=== PATIENT | male | born 1970 | race Caucasian/White ===

== ENCOUNTER 2023-08-05 09:10 | Outpatient (OUT) | payer OTHER, SELFPAY ==
[2023-08-05 09:54] LABS: Basophils Percent Auto 0.5 % (0.2-2.0); Eosinophils Absolute Auto 0.1 10^3/uL (0.0-0.7); Eosinophils Percent Auto 1.6 % (0.9-7.0); Hematocrit 50.4 % (42.0-54.0); Hemoglobin 16.7 g/dL (14.0-18.0); Immature Granulocytes Abs Auto 0.03 10^3/uL (0.00-0.03); Immature Granulocytes Pct Auto 0.5 % (0.0-0.5); Lymphocytes Absolute Auto 1.2 10^3/uL (1.2-3.8); Lymphocytes Percent Auto 18.4 % (20.5-60.0); Mean Corpuscular HGB Conc 33.1 g/dL (29.9-35.2); Mean Corpuscular Hemoglobin 30.5 pg (25.9-34.0); Mean Corpuscular Volume 92.1 fL (80.0-94.0); Mean Platelet Volume 9.9 fL (9.5-13.5); Monocytes Absolute Auto 0.5 10^3/uL (0.3-0.8); Monocytes Percent Auto 7.7 % (1.7-12.0); Neutrophils Absolute Auto 4.5 10^3/uL (1.4-6.5); Neutrophils Percent Auto 71.3 % (43.0-75.0); Platelet Count 282 10^3/uL (150-450); Red Blood Count 5.47 10^6/uL (4.70-6.10); Red Cell Distribution Width 12.8 % (11.0-15.0); White Blood Count 6.3 10^3/uL (4.0-11.0)
[2023-08-05 10:09] LABS: Estimated Average Glucose 108 mg/dL; Glycohemoglobin A1C 5.4 % (4.5-6.2)
[2023-08-05 10:19] LABS: Alanine Aminotransferase 38 U/L (16-63); Albumin Level 3.6 g/dL (3.4-5.0); Alkaline Phosphatase 81 U/L (46-116); Anion Gap 8.4; Aspartate Amino Transferase 28 U/L (15-37); BUN Creatinine Ratio 11.3; Bilirubin Total 0.7 mg/dL (0.2-1.0); Calcium 8.8 mg/dL (8.5-10.1); Carbon Dioxide 31.9 mmol/L (21.0-32.0); Chloride 102 mmol/L (98-107); Chol HDL Ratio 2.7; Cholesterol 192 mg/dL (<=200); Estimated GFR (African America >60 (>=60); Estimated GFR (Non-African Ame >60 (>=60); Free T3 3.25 pg/mL (2.18-3.98); Globulin 3.6 g/dL; Glucose 102 mg/dL (74-106); HDL Cholesterol 72 mg/dL (40-60); Potassium 4.3 mmol/L (3.5-5.1); Sodium 138 mmol/L (136-145); Total Protein 7.2 g/dL (6.4-8.2); Triglycerides 43 mg/dL (<=150); VLDL CHOLESTEROL 8.6 mg/dL
[2023-08-05 10:57] LABS: Prostate Specific Antigen Scrn 3.96 ng/mL (<=4.00)
== END 2023-08-05 09:11 | disposition home or self-care (01) ==
LOC: LAB 09:14
PROVIDERS: PCP Family Medicine; Visit Provider Family Medicine
DX: Z00.00 Encounter for general adult medical examination without abnormal findings (principal); E78.5 Hyperlipidemia, unspecified; R73.09 Other abnormal glucose; Z12.5 Encounter for screening for malignant neoplasm of prostate
CPT/HCPCS: 36415; 80053; 80061; 83036; 84436; 84443; 84481; 85025; G0103

== ENCOUNTER 2024-02-17 11:03 | Outpatient (OUT) | payer OTHER, SELFPAY ==
--- OUTSIDE RECORDS SUMMARY | 2024-02-17 11:08 | XMS_ITS | CCD ---
Author Organization [facility] Care Team Providers Care Press Feeder [employer]roomcorn Name Role Phone ELLIE, DR MELENDEZ Admitting Unavailable HOY, DR MELENDEZ Attending Unavailable HOY, DR MELENDEZ Primary Care Unavailable HOY, DR MELENDEZ Admitting Unavailable HOY, DR MELENDEZ Attending Unavailable HOY, DR MELENDEZ Primary Care Unavailable HOY, DR MELENDEZ Admitting Unavailable HOY, DR MELENDEZ Attending Unavailable HOY, DR MELENDEZ Primary Care Unavailable HOY, DR MELENDEZ Consulting Unavailable HOY, DR MELENDEZ Admitting Unavailable HOY, DR MELENDEZ Attending Unavailable HOY, DR MELENDEZ Primary Care Unavailable HOY, DR MELENDEZ Admitting Unavailable HOY, DR MELENDEZ Attending Unavailable HOY, DR MELENDEZ Primary Care Unavailable HOY, DR MELENDEZ Consulting Unavailable WEST, DR OMAR Garcia Consulting Unavailable HOY, DR MELENDEZ Admitting Unavailable HOY, DR MELENDEZ Attending Unavailable HOY, DR MELENDEZ Primary Care Unavailable HOY, DR MELENDEZ Consulting Unavailable HOY, DR MELENDEZ Admitting Unavailable HOY, DR MELENDEZ Attending Unavailable HOY, DR MELENDEZ Primary Care Unavailable HOY, DR MELENDEZ Consulting Unavailable WEST, DR OMAR Garcia Consulting Unavailable Problems Active Problems Problem Classification Problem Date Documented Da te Episodic/Chronic Disorders of lipid metabolism (1 source) Hyperlipidemia, unspecified; Translations: [HYPERLIPIDEMIA UNSPECIFIED] Onset: 10-20-2021 Chronic Other endocrine disorders (1 source) Testicular hypofunction; Translations: [TESTICULAR HYPOFUNCTION] Onset: 10-20-2021 Chronic Other non-traumatic joint disorders (1 source) Pain in unspecified shoulder; Translations: [PAIN IN UNSPECIFIED SHOULDER] Onset: 06-14-2022 Episodic Residual codes; unclassified (4 sources) Obstructive sleep apnea (adult) (pediatric); Translations: [OBSTRUCTIVE SLEEP APNEA] Onset: 03-23-2022 Chronic Spondylosis; intervertebral disc disorders; other back problems (5 sources) Other cervical disc degeneration, unspecified cervical region; Translations: [OTH CERV DISC DEGENERATION UNS CERV] Onset: 06-03-2022 Chronic Spondylosis; intervertebral disc disorders; other back problems (4 sources) Cervicalgia; Translations: [CERVICALGIA] Onset: 06-05-2022 Episodic Past or Other Problems Problem Classification Problem Date Documented Da te Episodic/Chronic Other aftercare (1 source) Other group home (current) drug therapy; Translations: [OTH [facility] CURRENT DRUG THERAPY] Onset: 10-20-2021 Episodic Other screening for suspected conditions (not mental disorders or infectious disease) (1 source) Encounter for screening for malignant neoplasm of prostate; Translations: [ENC SCREEN MALIG NEOPLASM PROSTATE] Onset: 10-20-2021 Episodic Results Test Name Value Interpretation Reference Range Facility MRI CSPINE WO CONon 06-03-20 MRI CSPINE WO CON EXAMINATION: MRI CSPINE WO CON HISTORY: Degeneration of cervical intervertebral disc COMPARISON: No relevant comparison available. TECHNIQUE: A variety of imaging planes and parameters were utilized for visualization of suspected pathology. FINDINGS: CRANIOCERVICAL AREA: Normal foramen magnum with no Chiari malformation. PARASPINAL AREA: Normal with no visible mass. BONES: Normal alignment with no acute fracture or spondylolisthesis. Mild diffuse degenerative spondylosis. CORD: Normal caliber, contour, and signal intensity. CERVICAL DISC LEVELS: C2-C3: Early degenerative disc disease is present without focal protrusion or neural impingement. C3-C4: Early degenerative disc disease is present without focal protrusion or neural impingement. C4-C5: Early degenerative disc disease is present without focal protrusion or neural impingement. C5-C6: Mild disc space narrowing and disc desiccation. Mild posterior disc/osteophyte complex. No central or foraminal stenosis C6-C7: Mild disc space narrowing and disc desiccation. Mild to moderate diffuse disc/osteophyte complex. Minimal narrowing of the central canal to 9.3 mm in AP dimension. Mild right foraminal stenosis. No left foraminal stenosis C7-T1:. No significant disc/facet abnormality, spinal stenosis, or foraminal stenosis. IMPRESSION: Discogenic changes most significant at C6-C7 where there is minimal central canal and mild right foraminal stenosis Electronically authenticated by: OMAR OLIVER Date: 2022-06-03 16:15 Normal [facility] XR FOREIGN BODY EYEon 12-30- 2022 XR FOREIGN BODY EYE EXAMINATION: XR FOREIGN BODY EYE HISTORY: Foreign body in eye COMPARISON: No relevant comparison available. FINDINGS: ORBITS: Negative for a metallic foreign body. OTHER: Negative. IMPRESSION: No metallic foreign body in the orbits Electronically authenticated by: OMAR OLIVER Date: 2022-06-03 09:47 Normal [facility] XR CSPINE MIN 4 VIEWSon 04-05 XR CSPINE MIN 4 VIEWS EXAMINATION: XR CSPINE MIN 4 VIEWS HISTORY: Degeneration of cervical intervertebral disc COMPARISON: No relevant comparison available. FINDINGS: BONES: Normal alignment with no acute fracture or spondylolisthesis. Mild to moderate spondylosis. Mild facet osteoarthropathy DISC SPACES: Mild disc space narrowing PARASPINOUS: Negative. No paraspinous abnormality is seen. OTHER: Negative. IMPRESSION: Mild to moderate degenerative changes most significant at C4-C7 Electronically authenticated by: OMAR OLIVER Date: 2022-04-21 15:51 Normal [facility] OCC BLD IMMUNO SCREENon 10-03 OCCULT BLOOD Negative Normal NEGATIVE [facility] Comment on above: Performed By: #### O BSCRN ####[facility] [id number] [address]Dr. Tae Loving TESTOSTERONE, TOTALon 2021 Testosterone [Mass/Vol] 1025 ng/dL Critically high 264-916 [facility] Comment on above: Result Comment: Adul t male reference interval is based on a population of healthy nonobese males (BMI <30) between 19 and 39 years old. Zhou, et.al. JCEM 2017,102;1590-6790. PMID: [id number]. Performed By: #### T ESTTOT #### [facility] [address] [address] [address] Tae Loving CBC AUTO DIFFon 10-16-2021 BASO # 0.1 103/ul Normal 0.0-0.1 [facility] Comment on above: Performed By: #### C BC #### [facility] [address] [address] [address] Tae Loving Basophils/100 WBC (Bld) 0.6 % Normal 0.2-2.0 [facility] Comment on above: Performed By: #### C BC #### [facility] [address] [place] [address] Dr. Tae Loving EO # 0.1 103/ul Normal 0.0-0.7 [facility] Comment on above: Performed By: #### C BC #### [facility] [address] [place] [address] Dr. Tae Loving Eosinophils/100 WBC (Bld) 1.7 % Normal 0.9-7.0 [facility] Comment on above: Performed By: #### C BC #### [facility] [address] [place] [address] Dr. Tae Loving Erythrocyte distribution width (RBC) [Ratio] 13.2 % Normal 11.0-15.0 [facility] Comment on above: Performed By: #### C BC #### [facility] [address] [place] [address] Dr. Tae Loving Hematocrit (Bld) [Volume fraction] 52.4 % Normal 42.0-54.0 [facility] Comment on above: Performed By: #### C BC #### [facility] [address] [place] [address] Dr. Tae Loving Hemoglobin (Bld) [Mass/Vol] 17.6 g/dL Normal 14.0-18.0 [facility] Comment on above: Performed By: #### C BC #### [facility] [address] [place] [address] Dr. Tae Loving IG # 0.05 10e3/ul Critically high 0.00-0.03 [facility] Comment on above: Performed By: #### C BC #### [facility] [address] [place] [address] Dr. Tae Loving IG % 0.6 % Critically high 0.0-0.5 [facility] Comment on above: Performed By: #### C BC #### [facility] [address] [place] [address] Dr. Tae Loving LYMPH # 1.4 103/ul Normal 1.2-3.8 [facility] Comment on above: Performed By: #### C BC #### [facility] [address] [place] [address] Dr. Tae Loving Lymphocytes/100 WBC (Bld) 17.5 % Critically low 20.5-60.0 [facility] Comment on above: Performed By: #### C BC #### [facility] [address] [place] [address] Dr. Tae Loving MANUAL DIFF REQ NO Normal [facility] Comment on above: Performed By: #### C BC #### [facility] [address] [place] [address] Dr. Tae Loving MCH (RBC) [Entitic mass] 30.7 pg Normal 25.9-34.0 [facility] Comment on above: Performed By: #### C BC #### [facility] [address] [place] [address] Dr. Tae Loving MCHC (RBC) [Mass/Vol] 33.6 g/dL Normal 29.9-35.2 [facility] Comment on above: Performed By: #### C BC #### [facility] [address] [place] [address] Dr. Tae Loving MCV (RBC) [Entitic vol] 91.4 fL Normal 80.0-94.0 [facility] Comment on above: Performed By: #### C BC #### [facility] [address] [place] [address] Dr. Tae Loving MONO # 0.7 103/ul Normal 0.3-0.8 [facility] Comment on above: Performed By: #### C BC #### [facility] [address] [place] [address] Dr. Tae Loving Monocytes/100 WBC (Bld) 8.4 % Normal 1.7-12.0 [facility] Comment on above: Performed By: #### C BC #### [facility] [address] [place] [address] Dr. Tae Loving NEUT # 5.5 103/ul Normal 1.4-6.5 [facility] Comment on above: Performed By: #### C BC #### [facility] [address] [address] [address] Tae Loving Neutrophils/100 WBC (Bld) 71.2 % Normal 43.0-75.0 [facility] Comment on above: Performed By: #### C BC #### [facility] [address] [address] [address] Tae Loving Platelet mean volume (Bld) [Entitic vol] 9.2 fL Critically low 9.5-13.5 [facility] Comment on above: Performed By: #### C BC #### [facility] [address] [address] [address] Tae Loving PLT 273 103/ul Normal 150-450 [facility] Comment on above: Performed By: #### C BC #### [facility] [address] [place] [address] Dr. Tae Loving RBC 5.73 106/ul Normal 4.70-6.10 [facility] Comment on above: Performed By: #### C BC #### [facility] [address] [address] [address] Tae Loving WBC 7.7 103/ul Normal 4.0-11.0 [facility] Comment on above: Performed By: #### C BC #### [facility] [address] [address] [address] Tae Loving FREE T3on 10-16-2021 FREE T3 2.90 pg/mlL Normal 2.18-3.98 [facility] Comment on above: Performed By: #### C MP, T4, LIPID, TSH, FT3 #### [facility] [address] [address] [address] Tae Loving GLYCOHEMOGLOBIN A1Con 2021 ADA RECOMMENDATION SEE BELOW Normal [facility] Comment on above: Result Comment: ADA RECOMMENDED LIMIT 4.0 - 6.0 ADA THERAPEUTIC TARGET < 7.0 ACTION SUGGESTED > 7.0 Performed By: #### A 1C ####[facility] [id number] [address]Dr. Tae Loving Glucose [Mass/Vol] 108 mg/dL Normal [facility] Comment on above: Performed By: #### A 1C ####[facility] [id number] [place], [place] [address]QxDr. Tae Loving HbA1c (Bld) [Mass fraction] 5.4 % Normal 4.5-6.2 [facility] Comment on above: Performed By: #### A 1C ####[facility] [id number] [address]Dr. Tae Loving LIPID PROFILEon 10-16-2021 CHOL-HDL RATIO NORM SEE BELOW Normal [facility] Comment on above: Result Comment: 3.3 - 4.4 LOW RISK 4.4 - 7.1 AVERAGE RISK 7.1 - 11.0 MODERATE RISK >11.0 HIGH RISK Performed By: #### C MP, T4, LIPID, TSH, FT3 #### [facility] [address] [address] [address] Tae Loving Cholesterol [Mass/Vol] 177 mg/dL Normal <=200 [facility] Comment on above: Performed By: #### C MP, T4, LIPID, TSH, FT3 #### [facility] [address] [address] [address] Tae Loving Cholesterol in HDL [Mass/Vol] 54 mg/dL Normal 40-60 [facility] Comment on above: Performed By: #### C MP, T4, LIPID, TSH, FT3 #### [facility] [address] [address] [address] Tae Loving Cholesterol in LDL [Mass/Vol] 109.8 mg/dL Normal [facility] Comment on above: Performed By: #### C MP, T4, LIPID, TSH, FT3 #### [facility] [address] [address] [address] Tae Loving Cholesterol.total/Ch olesterol in HDL [Mass ratio] 3.3 {ratio} Normal [facility] Comment on above: Performed By: #### C MP, T4, LIPID, TSH, FT3 #### [facility] [address] [address] [address] Tae Loving HDL NORMAL > or = 60 mg/dl - LO W CARDIOVASCULAR RISK <40 mg/dl - HIGH CARDIOVASCULAR RISK Normal [facility] Comment on above: Performed By: #### C MP, T4, LIPID, TSH, FT3 #### [facility] [address] [address] [address] Tae Loving LDL CALC NORMAL SEE BELOW Normal [facility] Comment on above: Result Comment: <100 mg/dl OPTIMAL 100 - 129 mg/dl NEAR OR ABOVE OPTIMAL 130 - 159 mg/dl BORDERLINE HIGH 160 - 189 mg/dl HIGH >190 mg/dl VERY HIGH Performed By: #### C MP, T4, LIPID, TSH, FT3 #### [facility] [address] [address] [address] Tae Loving Triglyceride [Mass/Vol] 66 mg/dL Normal <=150 [facility] Comment on above: Performed By: #### C MP, T4, LIPID, TSH, FT3 #### [facility] [address] [place] [address] Dr. Tae Loving VLDL CALC 13.2 mg/dL Normal [facility] Comment on above: Performed By: #### C MP, T4, LIPID, TSH, FT3 #### [facility] [address] [place] [address] Dr. Tae Loving PROF 14(COMP METB)on 022 Albumin [Mass/Vol] 3.7 g/dL Normal 3.4-5.[address] [facility] Comment on above: Performed By: #### C MP, T4, LIPID, TSH, FT3 #### [facility] [address] [place] [address] Dr. Tae Loving Albumin/Globulin [Mass ratio] 1.1 {ratio} Normal [facility] Comment on above: Performed By: #### C MP, T4, LIPID, TSH, FT3 #### [facility] [address] [place] [address] Dr. Tae Loving ALP [Catalytic activity/Vol] 78 U/L Normal 46-116 [facility] Comment on above: Performed By: #### C MP, T4, LIPID, TSH, FT3 #### [facility] [address] [place] [address] Dr. Tae Loving ALT [Catalytic activity/Vol] 35 U/L Normal 16-63 [facility] Comment on above: Performed By: #### C MP, T4, LIPID, TSH, FT3 #### [facility] [address] [address] [address] Tae Loving Anion gap [Moles/Vol] 9.0 mmol/L Normal [facility] Comment on above: Performed By: #### C MP, T4, LIPID, TSH, FT3 #### [facility] [address] [place] [address] Dr. Tae Loving AST [Catalytic activity/Vol] 32 U/L Normal 15-37 [facility] Comment on above: Performed By: #### C MP, T4, LIPID, TSH, FT3 #### [facility] [address] [place] [address] Dr. Tae Loving Bilirubin [Mass/Vol] 0.8 mg/dL Normal 0.2-1.0 [facility] Comment on above: Performed By: #### C MP, T4, LIPID, TSH, FT3 #### [facility] [address] [place] [address] Dr. Tae Loving Calcium [Mass/Vol] 8.6 mg/dL Normal 8.5-10.[address] [facility] Comment on above: Performed By: #### C MP, T4, LIPID, TSH, FT3 #### [facility] [address] [place] [address] Dr. Tae Loving Chloride [Moles/Vol] 101 mmol/L Normal 98-107 [facility] Comment on above: Performed By: #### C MP, T4, LIPID, TSH, FT3 #### [facility] [address] [place] [address] Dr. Tae Loving CO2 [Moles/Vol] 31.1 mmol/L Normal 21.0-32.0 [facility] Comment on above: Performed By: #### C MP, T4, LIPID, TSH, FT3 #### [facility] [address] [place] [address] Dr. Tae Loving Creatinine [Mass/Vol] 1.08 mg/dL Normal 0.70-1.30 [facility] Comment on above: Performed By: #### C MP, T4, LIPID, TSH, FT3 #### [facility] [address] [place] [address] Dr. Tae Loving EGFR-AF ROMANIAN >60 Normal >=60 [facility] Comment on above: Performed By: #### C MP, T4, LIPID, TSH, FT3 #### [facility] [address] [place] [address] Dr. Tae Loving EGFR-NON AF ROMANIAN >60 Normal >=60 [facility] Comment on above: Performed By: #### C MP, T4, LIPID, TSH, FT3 #### [facility] [address] [place] [address] Dr. Tae Loving Globulin (S) [Mass/Vol] 3.4 g/dL Normal [facility] Comment on above: Performed By: #### C MP, T4, LIPID, TSH, FT3 #### [facility] [address] [place] [address] Dr. Tae Loving Glucose [Mass/Vol] 88 mg/dL Normal 74-[address] [facility] Comment on above: Performed By: #### C MP, T4, LIPID, TSH, FT3 #### [facility] [address] [place] [address] Dr. Tae Loving Potassium [Moles/Vol] 4.1 mmol/L Normal 3.5-5.1 [facility] Comment on above: Performed By: #### C MP, T4, LIPID, TSH, FT3 #### [facility] [address] [place] [address] Dr. Tae Loving Protein [Mass/Vol] 7.1 g/dL Normal 6.4-8.[address] [facility] Comment on above: Performed By: #### C MP, T4, LIPID, TSH, FT3 #### [facility] [address] [place] [address] Dr. Tae Loving Sodium [Moles/Vol] 137 mmol/L Normal 136-[address] [facility] Comment on above: Performed By: #### C MP, T4, LIPID, TSH, FT3 #### [facility] [address] [place] [address] Dr. Tae Loving Urea nitrogen [Mass/Vol] 15.0 mg/dL Normal 7.0-18.0 [facility] Comment on above: Performed By: #### C MP, T4, LIPID, TSH, FT3 #### [facility] [address] [place] [address] Dr. Tae Loving Urea nitrogen/Creatinine [Mass ratio] 13.9 mg/mg Normal [facility] Comment on above: Performed By: #### C MP, T4, LIPID, TSH, FT3 #### [facility] [address] [place] [address] Dr. Tae Loving T4on 10-16-2021 T4 [Mass/Vol] 7.00 ug/dL Normal 4.50-12.10 [facility] Comment on above: Performed By: #### C MP, T4, LIPID, TSH, FT3 #### [facility] [address] [place] [address] Dr. Tae Loving TSHon 10-16-2021 TSH 2.444 uIU/mL Normal 0.358-3.740 [facility] Comment on above: Performed By: #### C MP, T4, LIPID, TSH, FT3 #### [facility] [address] [place] [address] Dr. Tae Loving TSH RANGE SEE BELOW Normal [facility] Comment on above: Result Comment: <0.3 4 UIU/ml HYPERTHYROID 0.34-5.60 UIU/ml EUTHYROID >5.60 UIU/ml HYPOTHYROID Performed By: #### C MP, T4, LIPID, TSH, FT3 #### [facility] [address] [place] [address] Dr. Tae Loving General Surgery Office/Clini c Noteon 02-27-2021 General Surgery Office/Clinic Note Chief Complaint post operative follow up HPI Staff 10 day post in-office excisional biopsy right upper back; pathology- hemangioma. Denies bleeding or drainage. Sutures intact. History of Present Illness 10 days s/p excision inflamed, bleeding lesion right upper back; consistent with hemangioma on pathology; doing well, mild irritation of stitches; no pain or drainage, no bleeding. Review of Systems ROS - Provider Constitutional: no fever, no sweats, no weight loss. Eyes: no glasses, no blurred vision, no visual loss. ENMT: no dentures, no hoarseness, no swallowing difficulties, no hearing loss, no ear infection(s), no nose bleeds. Cardiovascular: normal blood pressure, no chest pain, regular heartbeat, no heart murmur. Respiratory: no shortness of breath, no cough, no asthma, no wheezing. Gastrointestinal: no nausea, no vomiting, no diarrhea, no constipation, no blood in stool, no change in bowel habits, no abdominal pain, no hepatitis. Genitourinary: no kidney stones, no urine infection, no dysuria. Musculoskeletal: no pain, no weakness. Skin: no changing moles, no rash, no skin lumps. Neurologic: no seizures, no epilepsy, no headache. Psychiatric: no emotional or psychiatric problem. Heme/Lymph: no bleeding problems, no anemia, no blood clots, no transfusions. Allergy/Immunologic: no swollen lymph nodes/glands, no IV drug abuse. Other: Additional ROS info: Except as noted in the above Review of Systems and in the History of Present Illness, all other systems have been reviewed and are negative or noncontributory. Physical Exam Vitals & Measurements T: 36.8 ?C (Temporal Artery) skin: incision healing well, no erythema or drainage, no ecchymoses. Assessment/Plan 1. Hemangioma of skin (D18.01: Hemangioma of skin and subcutaneous tissue) sutures removed; call with problems/questions. Follow-up No qualifying data available Problem List/Past Medical History Ongoing Anxiety BMI 39.0-39.9,adult Frequent loose stools Hemangioma of skin IBS (irritable bowel syndrome) Insomnia Lump on face Neoplasm of uncertain behavior of skin of back Skin mole Sleep apnea Testicular hypofunction Historical Hx of colonic polyps Procedure/Surgical History Excision of hemangioma (02/16/2021), Colonoscopy and biopsy of colon (04/03/2020), Bone of toe, Left inguinal hernia. Medications Acidophilus Probiotic Blend, 1 cap(s), Oral, Daily Diclofenac 75mg Tab-DR, 75 mg, Oral, BID Multi Vitamins oral tablet, 1 tab(s), Oral, Daily sildenafil 100 mg Tab, 100 mg= 1 tab(s), Oral, Daily, PRN testosterone cypionate 200 mg/mL IM Laura, 100 mg= 0.5 mL, IntraMuscular, qWeek Allergies No Known Allergies Social History Alcohol - Denies Alcohol Use, 03/04/2020 Substance Abuse - Denies Substance Abuse, 03/04/2020 Tobacco - Denies Tobacco Use, 03/04/2020 Never (less than 100 in lifetime) Tobacco Use:., 02/26/2021 Family History Cardiac arrhythmia: Mother. Immunizations Vaccine Date Status Comments influenza virus vaccine, inactivated - Not Given Patient Refuses Normal [facility] [place] [facility] Comment on above: Result Comment: Elec tronically Signed By: MARIO SILVA, Rao Paez\Date and Time Signed: 02/27/21 08:59 EDT Pathology Noteon 02-19-2021 Pathology Note [id number]# 1.00CD:127 Normal [facility] [place] [facility] Ambulatory Clinical Summaryo n 04-14-2020 Ambulatory Clinical Summary {[id number] -5c-30}CD:[id number] Normal [facility] General Surgery Office/Clini c Noteon 04-14-2020 General Surgery Office/Clinic Note Chief Complaint colonoscopy results HPI Staff 49 year old male on follow from colonoscopy with biopsies. Denies post procedural problems. No change in bowels. History of Present Illness s/p colonoscopy for loose stools; normal, bile throughout colon; negative terminal ileum and sigmoid biopsies; likely related to IBS; doing well, denies pain or blood in stools. Review of Systems PHQ Score Initial Depression Screen Score: 0 ROS - Provider Constitutional: no fever, no sweats, no weight loss. Eyes: no glasses, no blurred vision, no visual loss. ENMT: no dentures, no hoarseness, no swallowing difficulties, no hearing loss, no ear infection(s), no nose bleeds. Cardiovascular: normal blood pressure, no chest pain, regular heartbeat, no heart murmur. Respiratory: no shortness of breath, no cough, no asthma, no wheezing. Gastrointestinal: no nausea, no vomiting, no diarrhea, no constipation, no blood in stool, no change in bowel habits, no abdominal pain, no hepatitis. Genitourinary: no kidney stones, no urine infection, no dysuria. Musculoskeletal: no pain, no weakness. Skin: no changing moles, no rash, no skin lumps. Neurologic: no seizures, no epilepsy, no headache. Psychiatric: no emotional or psychiatric problem. Heme/Lymph: no bleeding problems, no anemia, no blood clots, no transfusions. Allergy/Immunologic: no swollen lymph nodes/glands, no IV drug abuse. Other: Additional ROS info: Except as noted in the above Review of Systems and in the History of Present Illness, all other systems have been reviewed and are negative or noncontributory. Physical Exam Vitals & Measurements T: 37.9 ?C (Tympanic) HR: 80(Peripheral) RR: 16 BP: 146/78 HT: 180.3 cm HT: 180.3 cm WT: 122.8 kg WT: 122.79 kg BMI: 37.77 Assessment/Plan 1. IBS (irritable bowel syndrome) (K58.9: Irritable bowel syndrome without diarrhea) recommend trial of low FODMAP diet; high fiber diet with daily fiber supplement; if no improvement, may consider Questran. call with problems/questions. 2. Frequent loose stools (R19.7: Diarrhea, unspecified) see # 1 Follow-up No qualifying data available Patient Education Diet and Irritable Bowel Syndrome Problem List/Past Medical History Ongoing Anxiety Frequent loose stools IBS (irritable bowel syndrome) Insomnia Sleep apnea Testicular hypofunction Historical Hx of colonic polyps Procedure/Surgical History Colonoscopy and biopsy of colon (04/03/2020), Bone of toe, Left inguinal hernia. Medications Diclofenac 75mg Tab-DR, 75 mg, Oral, BID, Still taking, not as prescribed: taking as needed. unknown last dose sildenafil 100 mg Tab, 100 mg= 1 tab(s), Oral, Daily, PRN testosterone cypionate 200 mg/mL IM Laura, 100 mg= 0.5 mL, IntraMuscular, qWeek Allergies No Known Allergies Social History Alcohol - Denies Alcohol Use, 03/04/2020 Substance Abuse - Denies Substance Abuse, 03/04/2020 Tobacco - Denies Tobacco Use, 03/04/2020 Never (less than 100 in lifetime) Tobacco Use:., 04/14/2020 Family History Cardiac arrhythmia: Mother. Immunizations Vaccine Date Status Comments influenza virus vaccine, inactivated - Not Given Patient Refuses Normal [facility] Comment on above: Result Comment: Elec tronically Signed By: Rao COPE MD\Date and Time Signed: 04/14/20 16:42 EST IntraOperative Documentson 1 06-14-2019 IntraOperative Documents [id number]# 1.00CD:127 Normal [facility] Patient Educationon 04-14-20 Patient Education Diet and Irritable Bowel Syndrome No cure has been found for irritable bowel syndrome (IBS). Many options are available to treat the symptoms. Your caregiver will give you the best treatments available for your symptoms. He or she will also encourage you to manage stress and to make changes to your diet. You need to work with your caregiver and Director Of Compensation to find the best combination of medicine, diet, counseling, and support to control your symptoms. The following are some diet suggestions. FOODS THAT MAKE IBS WORSE ? Fatty foods, such as [place]ian fries. ? Milk products, such as cheese or ice cream. ? Chocolate. ? Alcohol. ? Caffeine (found in coffee and some sodas). ? Carbonated drinks, such as soda. If certain foods cause symptoms, you should eat less of them or stop eating them. FOOD JOURNAL ? Keep a journal of the foods that seem to cause distress. Write down: ? What you are eating during the day and when. ? What problems you are having after eating. ? When the symptoms occur in relation to your meals. ? What foods always make you feel badly. ? Take your notes with you to your caregiver to see if you should stop eating certain foods. FOODS THAT MAKE IBS BETTER Fiber reduces IBS symptoms, especially constipation, because it makes stools soft, bulky, and easier to pass. Fiber is found in bran, bread, cereal, beans, fruit, and vegetables. Examples of foods with fiber include: ? Apples. ? Peaches. ? Pears. ? Berries. ? Figs. ? Broccoli, raw. ? Cabbage. ? Carrots. ? Raw peas. ? Kidney beans. ? [place] beans. ? Whole-grain bread. ? Whole-grain cereal. Add foods with fiber to your diet a little at a time. This will let your body get used to them. Too much fiber at once might cause gas and swelling of your abdomen. This can trigger symptoms in a person with IBS. Caregivers usually recommend a diet with enough fiber to produce soft, painless bowel movements. High fiber diets may cause gas and bloating. However, these symptoms often go away within a few weeks, as your body adjusts. In many cases, dietary fiber may lessen IBS symptoms, particularly constipation. However, it may not help pain or diarrhea. High fiber diets keep the colon mildly enlarged (distended ) with the added fiber. This may help prevent spasms in the colon. Some forms of fiber also keep water in the stool, thereby preventing hard stools that are difficult to pass. Besides telling you to eat more foods with fiber, your caregiver may also tell you to get more fiber by taking a fiber pill or drinking water mixed with a special high fiber powder. An example of this is a natural fiber laxative containing psyllium seed. TIPS ? Large meals can cause cramping and diarrhea in people with IBS. If this happens to you, try eating 4 or 5 small meals a day, or try eating less at each of your usual 3 meals. It may also help if your meals are low in fat and high in carbohydrates. Examples of carbohydrates are pasta, rice, whole-grain breads and cereals, fruits, and vegetables. ? If dairy products cause your symptoms to flare up, you can try eating less of those foods. You might be able to handle yogurt better than other dairy products, because it contains bacteria that helps with digestion. Dairy products are an important source of calcium and other nutrients. If you need to avoid dairy products, be sure to talk with a Registered Dietitian about getting these nutrients through other food sources. ? Drink enough water and fluids to keep your urine clear or pale yellow. This is important, especially if you have diarrhea. FOR MORE INFORMATION International Foundation for Functional Gastrointestinal Disorders: www.iffgd.org National Digestive Diseases Information Clearinghouse: digestive.niddk.nih.g ov Document Released: 08/11/2004 Document Revised: 08/13/2012 Document Reviewed: 04/28/2008 ExitCare? Patient Information ?2013 [facility] Postoperative Documentson Postoperative Documents [id number] .00CD:127 Normal [facility] Coding Summary.on 04-10-2020 Coding Summary. CODING DATE: 04/10/2020 FINAL [facility] STATUS: Home (Routine DC) PAYOR: Commercial Insurance APC DESCRIPTION 5312 Level 2 Lower GI Procedures ADMIT DX: REASON FOR VISIT DX: R19.7 Diarrhea, unspecified FINAL DX: PRINCIPAL: R19.7 Diarrhea, unspecified SECONDARY: K58.9 Irritable bowel syndrome without diarrhea PYMT PROC APC STAT DESCRIPTION DOCTOR NAME DATE 74481 5312 T Colonoscopy, flexible; Rao COPE MD 04/03/2020 with biopsy, single or multiple 07296 Anesthesia for lower Liben JR DO, Shashi 04/03/2020 intestinal endoscopic procedures, endoscope introduced distal to duodenum; not otherwise specified NOTE: The code number assigned matches the documented diagnosis and / or procedure in the patient's chart. However, the narrative phrase printed from the coding software may appear abbreviated, or result in slightly different terminology. Revised Coded By: Teri Wylie Revised Date Saved: 04/10/2020 11:21 am [facility] Main OR Intraoperative Recor don 04-07-2020 Main OR Intraoperative Record IntraOp Document Type FT Summary Primary Physician: Rao COPE MD Finalized Date/Time: 04/07/20 10:56:53 Pt. Name: SEDRICK HENDRICKS/Sex: 1970 Male Med Rec #: [id number] Physician: Rao COPE MD Financial #: [id number] Pt. Type: O Room/Bed: / Admit/Disch: 04/03/20 07:24:03 - 04/03/20 23:59:59 Institution: Case Times FT Entry 1 Patient Times In Room 04/03/20 08:30:00 Out Room 04/03/20 08:50:00 Procedure Times Start 04/03/20 08:34:00 Stop 04/03/20 08:47:00 Anesthesia Times Start 04/03/20 08:30:00 Stop 04/03/20 08:50:00 Time at [place] 04/03/20 08:39:00 Last Modified By: Tony CHOI, Yvonne Nelson 04/03/20 08:50:49 General Comments: 04/07/2020 Chart opened to review and send charges Omar Castro CST Case Attendance FT Entry 1 Entry 2 Entry 3 Case Attendee Erwin HUYNH DO, Shashi COPE MD, Yvonne Jimenez RN Role Performed Anesthesiologist of Surgeon - Primary Check Out Cashier - Primary Record Time In 04/03/20 08:30:00 04/03/20 08:30:00 04/03/20 08:30:00 Time Out 04/03/20 08:49:00 04/03/20 08:49:00 04/03/20 08:49:00 Procedure COLONOSCOPY(.) COLONOSCOPY(.) COLONOSCOPY(.) Comments Last Modified By: Tony RN, Yvonne Jimenez RN, Yvonne Granados RN 04/03/20 08:49:13 04/03/20 08:49:13 04/03/20 08:49:13 Entry 4 Case Attendee Alondra Reilly CST Role Performed Scrub - Primary Time In 04/03/20 08:30:00 Time Out 04/03/20 08:49:00 Procedure COLONOSCOPY(.) Comments Last Modified By: Yvonne Jimenez RN 04/03/20 08:49:13 Perioperative Protocols FT Pre-Care Text: Implements protective measures prior to operative or invasive procedure, confirms identity before the operative or invasive procedure, verifies operative procedure, surgical site, and laterality Entry 1 Procedure(s) COLONOSCOPY(.) Patient Identity Birthday, ID Band Verified (select at Check, Patient least 2): Participation Consents / H and P Anesthesia Consent, Operative Site N/A Verified HandP, Surgery/Procedure Marking Verified Consent Surgical Site Yes Laterality Verified n/a Verified Procedure Verified Yes Correct Patient Yes Position Verified Availability Equipment, Medication Prep Dry n/a Verified (If Applicable) PreOp Antibiotic No Time Out Erwin HUYNH DO, MARIO Paiz MD, Tony Bah RN, Tommie Childress CST, Kimberly A Time Out Complete 04/03/20 08:33:00 Outcomes Met? Yes Last Modified By: Yvonne Jimenez RN 04/03/20 08:34:27 Post-Care Text: The patient is free from signs and symptoms of injury caused by extraneous objects Allergy Information FT Pre-Care Text: Verifies allergies Entry 1 Allergies Reviewed? Yes Allergies Reviewed Self/Patient With Outcomes Met? Yes Last Modified By: Yvonne Jimenez RN 04/03/20 07:15:25 Post-Care Text: The patient received appropriate medication(s) safely administered during the perioperative period Surgical Procedures FT Entry 1 Procedure Description Procedure COLONOSCOPY Modifiers . Surgeon Description COLONOSCOPY WITH TERMINAL ILEUM AND SIGMOID BIOPSIES Primary Procedure Yes Primary Surgeon Rao COPE MD 04/03/20 08:34:00 Stop 04/03/20 08:47:00 Anesthesia Type General Surgical Service General Wound Class 2 - Clean-Contaminated Last Modified By: Yvonne Jimenez RN 04/03/20 08:49:12 General Case Data FT Pre-Care Text: Classifies surgical wound, implements aseptic technique, initiates traffic control Entry 1 Case Information OR ENDO 2 FT Case Level Level 2 Wound Class 2 - Clean-Contaminated Specialty General ASA Class 2 Preop Diagnosis LOOSE STOOLS Postop Same As Preop No Postop Diagnosis NORMAL COLONOSCOPY Outcomes Met? Yes Last Modified By: Yvonne Jimenez RN 04/03/20 08:49:24 Post-Care Text: The patient is free from signs and symptoms of infection Skin Assessment (Pre Procedure) FT Pre-Care Text: Implements protective measures to prevent skin/ tissue injury due to thermal or mechanical sources Evaluates for signs and symptoms of physical injury to skin and tissue Entry 1 Skin Integrity Other/See Comments Skin Abnormality No Outcomes Met? Yes Last Modified By: Yvonne Jimenez RN 04/03/20 08:37:07 Post-Care Text: The patient is free from signs and symptoms of injury caused by extraneous objects Patient Positioning FT Pre-Care Text: Identifies physical alterations that require additional precautions for procedure-specific positioning, verifies presence of prosthetics or corrective devices, positions the patient, evaluates the patient for signs and symptoms of injury as a result of positioning Entry 1 Procedure COLONOSCOPY(.) Body Position Lateral, right side up Feet Uncrossed? Yes Left Arm Position Resting at Side Right Arm Position Resting at Side Left Leg Position Extended Right Leg Position Extended Positioning Device Pillow Under Head Large Press Points Checked Yes By Yvonne Jimenez RN, Erwin HUYNH DO, N (more content not included)... Normal [facility] Colonoscopy Procedure Report on 04-03-2020 Colonoscopy Procedure Report Date of Surgery: 04/03/2020 SURGEON: Rao Cope M.D. PREOPERATIVE DIAGNOSIS: Frequent loose stools POSTOPERATIVE DIAGNOSIS: Normal colonoscopy to terminal ileum OPERATION: Colonoscopy to terminal ileum with cold biopsy of the terminal ileum and sigmoid due to his history of loose stools ANESTHESIA: Monitored anesthesia care ANESTHESIOLOGIST: Ekaterina Hood Jr., D.O. ESTIMATED BLOOD LOSS: Less than 1 mL INDICATIONS AND CONSENT: The patient is a 49 year old male with frequent loose stools. The indications, risks, benefits, alternatives of proceeding with colonoscopy were explained extensively to the patient including risk of bleeding, colon perforation or anesthetic complications. All of his questions were answered. Informed consent was obtained. PROCEDURE: The patient was brought to the Operating Room and placed in the left lateral decubitus position. Monitored anesthesia care was provided. Rectal examination was performed which revealed no masses or blood. The scope was inserted at the anal canal under direct visualization it was advanced. It was advanced to the cecum where cecal markings were clearly identified. There was noted to be a good prep. The terminal ileum was intubated and noted to be normal. Random biopsy was obtained with cold biopsy forceps with good hemostasis. Upon withdrawal of the scope mucosal surfaces were carefully examined. There were no mass, lesions or polyps. No inflammatory changes or ulcerations. No significant diverticulosis. A random sigmoid biopsy was also obtained with the cold biopsy forceps with good hemostasis. The scope was retroflexed in the anal canal. There was noted to be some prominent rectal veins. No significant hemorrhoidal disease. The scope was then withdrawn. The patient tolerated the procedure well, was sent to Recovery Room in good condition. Johnny Martino Dictated: 04/03/2020 #[id number] Typed: 04/03/2020 #[id number] cc: Johnny Larkin M.D. [facility] Consenton 04-03-2020 Consent [id number]# 1.00CD:127 [facility] Consent for Treatmenton 03-07 Consent for Treatment [id number] .00CD:127 [facility] Discharge Instructionson Discharge Instructions [id number]# 1.00CD:127 Normal [facility] Inpatient Patient Summaryon 04-03-2020 Inpatient Patient Summary [address] [address] [facility] Clinical Discharge Instructions PERSON INFORMATION Name: SEDRICK HENDRICKS PHYSICIANS Admitting Physician: Rao COPE MD Attending Physician: Rao COPE MD PCP: Ellie SILVA, Al Discharge Diagnosis: Frequent loose stools Comment: PATIENT EDUCATION INFORMATION Instructions: Colonoscopy, Care After Surgery Salam (CUSTOM) Medication Leaflets: Follow up: With: Address: When: Rao MARIO [address] [place] [address], [address], [address] [address] Business (1) Within 7 to 10 days MEDICATION LIST Medications to Continue with No Changes Other Medications diclofenac (Diclofenac 75mg Tab-DR) 75 Milligram By Mouth 2 times a day. sildenafil (sildenafil 100 mg Tab) 1 Tablets By Mouth every day as needed erectile dysfunction. testosterone (testosterone cypionate 200 mg/mL IM Laura) 0.5 Milliliter Intramuscular every week. Comment: Normal [facility] IntraOperative Documentson IntraOperative Documents [id number]# 1.00CD:127 Normal [facility] IntraOperative Documents [id number]# 1.00CD:127 [facility] Main OR PACU I Recordon 03-07 Main OR PACU I Record PACU Phase I Document Type FT Summary Primary Physician: Rao COPE MD Finalized Date/Time: 04/03/20 09:24:17 Pt. Name: SEDRICK HENDRICKS Linda /Sex: 1970 Male Med Rec #: [id number] Physician: Rao COPE MD Financial #: [id number] Pt. Type: O Room/Bed: / Admit/Disch: 04/03/20 07:24:03 - Institution: Case Times PACU I FT Pre-Care Text: Identifies barriers to communication and implements measures to provide psychological support Develops individualized plan of care, and ensures continuity of care Maintains patient's dignity and privacy, and maintains patient confidentiality Identifies and reports philosophical, cultural, and spiritual beliefs and values Identifies individual values and wishes concerning care Implements aseptic technique, and administers prescribed antibiotic therapy and immunizing agents as ordered Evaluates postoperative tissue perfusion Implements thermoregulation measures, and monitors body temperature Evaluates postoperative respiratory status Evaluates postoperative cardiac status Evaluates postoperative neurological status Assesses pain control, collaborated in initiating patient-controlled analgesia and implements alternative methods of pain control Verifies allergies, administers prescribed medications and solutions, evaluates response to medications Entry 1 In PACU I 04/03/20 08:51:00 Discharge from PACU 04/03/20 09:21:00 I Outcomes Met? Yes Last Modified By: Shira Pinto RN 04/03/20 09:24:08 Post-Care Text: The patient demonstrates knowledge of the expected response to the operative or invasive procedure The patient's care is consistent with the individualized perioperative plan of care The patient's right to privacy is maintained The patient's value system, lifestyle, ethnicity, and culture are considered, respected, and incorporated into the perioperative plan of care The patient participates in decisions affecting his or her perioperative plan of care The patient is free from signs and symptoms of infection The patient has wound/tissue perfusion consistent with or improved from baseline levels established preoperatively The patient is at or returning to normothermia at the conclusion of the immediate postoperative period The patient's respiratory function is consistent with or improved from baseline levels established preoperatively The patient's cardiovascular status is consistent with or improved from baseline levels established preoperatively The patient's cardiovascular status is consistent with or improved from baseline levels established preoperatively The patient demonstrates and/or reports adequate pain control throughout the perioperative period The patient received appropriate medication(s), safely administered during the perioperative period Acuity Level PACU I FT Entry 1 Start Time 04/03/20 08:51:00 Stop Time 04/03/20 09:21:00 Acuity Level Acuity Level I Last Modified By: Shira Pinto RN 04/03/20 09:24:17 Finalized By: Shira Pinto RN Document Signatures Signed By: Shira Pinto RN 04/03/20 09:24 [facility] Main OR Preoperative Recordo n 04-03-2020 Main OR Preoperative Record Holding Area Document Type FT Summary Primary Physician: Rao COPE MD Finalized Date/Time: 04/03/20 07:44:27 Pt. Name: SABA HENDRICKSOBEY ChristyO.B./Sex: 1970 Male Med Rec #: [id number] Physician: Rao COPE MD Financial #: [id number] Pt. Type: O Room/Bed: / Admit/Disch: 04/03/20 07:24:03 - Institution: Case Times Holding FT Pre-Care Text: Verifies consent for planned procedure, identifies individual values and wishes concerning care, includes family members in perioperative teaching Secures patient's records' belongings, and valuables, maintains patient's dignity and privacy, and maintains patient confidentiality Entry 1 In Holding 04/03/20 07:40:00 Outcomes Met? Yes Last Modified By: James Cleary RN 04/03/20 07:42:09 Post-Care Text: The patient participates in decisions affecting his or her perioperative plan of care The patient's right to privacy is maintained Surgery Checklist FT Entry 1 Patient Birthday, ID Band Procedure History and Physical, Identification: Check, Patient Verification: Surgical Consent, With Participation Patient Personal Items: Glasses Personal Items glasses Comment: Limitations: none Complaints of Pain: No Pain Comment: denies Operative Site n/a Marking: Availability Equipment Verified: Does Patient Smoke No Patient states Yes Comment - Adult - Sade postop adult Supervision supervision available Case Cancelled in No Holding Area see comments below for reason Last Modified By: James Cleary RN 04/03/20 07:44:21 General Comments: pt finished prep before 0000. nothing to eat or drink after. MS,RN. Finalized By: James Cleary RN Document Signatures Signed By: James Cleary RN 04/03/20 07:44 Normal [facility] Outpatient Surgery Discharge Instructionon 04-03-2020 Outpatient Surgery Discharge Instruction [address] [address] Patient Discharge Instructions PERSON INFORMATION Name: ALEJANDRA SEDRICK Mckeon Date of : 1970 Current Date: 04/03/2020 09:00:12 PHYSICIANS Admitting Physician: Rao COPE MD Discharge Diagnosis: Frequent loose stools SEDRICK HENDRICKS has been given the following list of follow-up instructions, prescriptions, and patient education materials: PATIENT FOLLOW-UP INFORMATION Diet: Regular Discharge Activity: Resume normal activities in 24 hours, Arrange for a responsible adult supervision for 24 hours Discharge Restrictions: No driving for 24 hrs, Do not make important decisions for 24 hours, Do not drink alcoholic beverages for 24 hours Call Your Doctor For: Persistent or heavy bleeding, Temperature above 101.5 degrees, Severe pain at the operative site, Persistent vomiting IF UNABLE TO CONTACT YOUR PHYSICIAN AND YOU FEEL IT IS AN EMERGENCY, GO TO THE NEAREST EMERGENCY ROOM OR CALL 911 I, SEDRICK HENDRICKS, have received the attached patient education materials/instruction s and have verbalized understanding: May we do a follow up call? Yes No I was present when discharge instructions were given Patient Signature Date Clinican/Nurse Signature Date Follow up: With: Address: When: Rao COPE [address] [place] [address], [address], [address] [address] Business (1) Within 7 to 10 days Pharmacy Information: Thank you for choosing [facility] HERE ARE THE MEDICATION CHANGES THAT OCCURRED DURING YOUR HOSPITAL STAY Medications to Continue with No Changes Other Medications diclofenac (Diclofenac 75mg Tab-DR) 75 Milligram By Mouth 2 times a day. sildenafil (sildenafil 100 mg Tab) 1 Tablets By Mouth every day as needed erectile dysfunction. testosterone (testosterone cypionate 200 mg/mL IM Laura) 0.5 Milliliter Intramuscular every week. PATIENT EDUCATION INFORMATION Instructions: Colonoscopy Care After Surgery Please read the instructions outlined below and refer to this sheet in the next few weeks. These discharge instructions provide you with general information on caring for yourself after you leave the hospital. Your doctor may also give you specific instructions. While your treatment has been planned according to the most current medical practices available, unavoidable complications occasionally occur. If you have any problems or questions after discharge, please call your doctor. ACTIVITY You may resume your regular activity, but move at a slower pace for the next 24 hours. Take frequent rest periods for the next 24 hours. Walking will help get rid of the air and reduce the bloated feeling in your abdomen (belly). No driving for 24 hours (because of the anesthesia (medicine) used during the test). You may shower. Do not sign any important legal documents or operate any machinery for 24 hours (because of the anesthesia used during the test). NUTRITION Drink plenty of fluids. You may resume your normal diet as instructed by your doctor. Begin with a light meal and progress to your normal diet. Heavy or fried foods are harder to digest and may make you feel nauseated (sick to your stomach). Avoid alcoholic beverages for 24 hours or as instructed. MEDICATIONS You may resume your normal medications unless your doctor tells you otherwise. WHAT YOU CAN EXPECT TODAY Some feelings of bloating in the abdomen. Passage of more gas than usual. Spotting of blood in your stool or on the toilet paper. FOLLOW-UP Your doctor will discuss the results of your test with you. SEEK IMMEDIATE MEDICAL ATTENTION IF: There is more than a spotting of blood in your stool. There is abdominal distention (your abdomen is swollen). There is vomiting. You have a temperature over 101.5 F. There is abdominal pain or discomfort that is severe or gets worse throughout the day. Normal [facility] [place] [facility] Patient Education - Texton 1 Patient Education - Text Colonoscopy Care After Surgery Please read the instructions outlined below and refer to this sheet in the next few weeks. These discharge instructions provide you with general information on caring for yourself after you leave the hospital. Your doctor may also give you specific instructions. While your treatment has been planned according to the most current medical practices available, unavoidable complications occasionally occur. If you have any problems or questions after discharge, please call your doctor. ACTIVITY You may resume your regular activity, but move at a slower pace for the next 24 hours. Take frequent rest periods for the next 24 hours. Walking will help get rid of the air and reduce the bloated feeling in your abdomen (belly). No driving for 24 hours (because of the anesthesia (medicine) used during the test). You may shower. Do not sign any important legal documents or operate any machinery for 24 hours (because of the anesthesia used during the test). NUTRITION Drink plenty of fluids. You may resume your normal diet as instructed by your doctor. Begin with a light meal and progress to your normal diet. Heavy or fried foods are harder to digest and may make you feel nauseated (sick to your stomach). Avoid alcoholic beverages for 24 hours or as instructed. MEDICATIONS You may resume your normal medications unless your doctor tells you otherwise. WHAT YOU CAN EXPECT TODAY Some feelings of bloating in the abdomen. Passage of more gas than usual. Spotting of blood in your stool or on the toilet paper. FOLLOW-UP Your doctor will discuss the results of your test with you. SEEK IMMEDIATE MEDICAL ATTENTION IF: There is more than a spotting of blood in your stool. There is abdominal distention (your abdomen is swollen). There is vomiting. You have a temperature over 101.5 F. There is abdominal pain or discomfort that is severe or gets worse throughout the day. Normal [facility] [place] [facility] Progress Note-Physicianon Progress Note-Physician Patient: SEDRICK HENDRICKS Age: 49 years Sex: Male : 1970 Associated Diagnoses: None Author: Shashi Hood JR, DO Postoperative Information Post Operative Note: Post Anesthesia Care Unit. Anesthetic utilized: General, Monitored anesthesia care. Health Status Allergies: Allergic Reactions (Selected) No Known Allergies Current medications: (Selected) Inpatient Medications Ordered Sodium Chloride 0.9% IV Laura 1000 mL 1,000 mL: 1,000 mL, IV, 20 mL/hr, Routine, Start date 04/03/20 7:16:00 EDT, 50 hour(s), Total volume (mL): 1,000, 122.8 kg, 2.48, m2 Documented Medications Documented Diclofenac 75mg Tab-DR: 75 mg, Oral, BID, Refills(s) 0 sildenafil 100 mg Tab: 100 mg = 1 tab(s), Oral, Daily, PRN erectile dysfunction, Refills(s) 0 testosterone cypionate 200 mg/mL IM Laura: 100 mg = 0.5 mL, IntraMuscular, qWeek, Refills(s) 0 Problem list: All Problems Frequent loose stools / SNOMED CT 197652385 / Confirmed Sleep apnea / SNOMED CT 655838553 / Confirmed Testicular hypofunction / SNOMED CT 889955824 / Confirmed IBS (irritable bowel syndrome) / SNOMED CT 39247223 / Confirmed Insomnia / SNOMED CT 484064681 / Confirmed Anxiety / SNOMED CT 24368550 / Confirmed Physical Examination Intake and Output Denies significant n/v and is tolerating p.o. Vital Signs (last 24 hrs) Last Charted SBP 114 mmHg (APR 03 08:45) DBP 94 mmHg (APR 03 08:45) SpO2 98 % (APR 03 08:45) Respiratory: Adequate air exchange with mu-ism of preoperative function.. Cardiovascular: Cardiovascular function is stable and has returned to preoperative levels.. Neurologic: Pt has returned to preoperative baseline.. Review / Management Condition: Stable. Assessment Anesthetic outcome No anesthetic complications noted. Plan Transfer/ Discharge: Patient can be discharged from PACU when criteria met. Condition good. Normal [facility] [place] [facility] Comment on above: Result Comment: Elec tronically Signed By: Shashi Hood JR, DO\.br\Date and Time Signed: 04/03/20 08:57 EDT Progress Note-Physician Patient: SEDRICK HENDRICKS Age: 49 years Sex: Male : 1970 Associated Diagnoses: None Author: Shashi Hood JR, DO Postoperative Information Post Operative Note: Post Anesthesia Care Unit. Anesthetic utilized: General, Monitored anesthesia care. Health Status Allergies: Allergic Reactions (Selected) No Known Allergies Current medications: (Selected) Inpatient Medications Ordered Sodium Chloride 0.9% IV Laura 1000 mL 1,000 mL: 1,000 mL, IV, 20 mL/hr, Routine, Start date 04/03/20 7:16:00 EDT, 50 hour(s), Total volume (mL): 1,000, 122.8 kg, 2.48, m2 Documented Medications Documented Diclofenac 75mg Tab-DR: 75 mg, Oral, BID, Refills(s) 0 sildenafil 100 mg Tab: 100 mg = 1 tab(s), Oral, Daily, PRN erectile dysfunction, Refills(s) 0 testosterone cypionate 200 mg/mL IM Laura: 100 mg = 0.5 mL, IntraMuscular, qWeek, Refills(s) 0 Problem list: All Problems Frequent loose stools / SNOMED CT 653938515 / Confirmed Sleep apnea / SNOMED CT 610023819 / Confirmed Testicular hypofunction / SNOMED CT 962632221 / Confirmed IBS (irritable bowel syndrome) / SNOMED CT 74537033 / Confirmed Insomnia / SNOMED CT 971316789 / Confirmed Anxiety / SNOMED CT 38935268 / Confirmed Physical Examination Intake and Output Denies significant n/v and is tolerating p.o. Vital Signs (last 24 hrs) Last Charted SBP H 154mmHg (APR 03 07:47) DBP H 93mmHg (APR 03 07:47) SpO2 96 % (APR 03 07:47) Respiratory: Adequate air exchange with mu-ism of preoperative function.. Cardiovascular: Cardiovascular function is stable and has returned to preoperative levels.. Neurologic: Pt has returned to preoperative baseline.. Review / Management Condition: Stable. Assessment Anesthetic outcome No anesthetic complications noted. Plan Transfer/ Discharge: Patient can be discharged from PACU when criteria met. Condition good. Normal [facility] [place] [facility] Comment on above: Result Comment: Elec tronically Signed By: Shashi Hood JR, DO\Date and Time Signed: 04/03/20 08:51 EDT Coding Summary.on 03-31-2020 Coding Summary. CODING DATE: 03/31/2020 FINAL [facility] STATUS: Home (Routine DC) PAYOR: Commercial Insurance ADMIT DX: REASON FOR VISIT DX: Z01.812 Encounter for preprocedural laboratory examination FINAL DX: PRINCIPAL: Z01.812 Encounter for preprocedural laboratory examination SECONDARY: Z11.59 Encounter for screening for other viral diseases PYMT PROC APC STAT DESCRIPTION DOCTOR NAME DATE NOTE: The code number assigned matches the documented diagnosis and / or procedure in the patient's chart. However, the narrative phrase printed from the coding software may appear abbreviated, or result in slightly different terminology. Coded By: Cristina Aranda CphT Date Saved: 03/31/2020 09:24 am Normal [facility] [place] [facility] Priority Order-Kevan 2019 Priority Order-STAT Comment Invalid Interpretation Code [facility] [place] [facility] Comment on above: Result Comment: Rece ived Performed at: [facility] [address] [facility] [place] [id number] MD Lyndon Rossi Performed By: #### S ARS-CoV-2, KATLHEEN, [id number] ####[facility] [place] [facility] [address] [place] [address] SARS-CoV-2, NAAon 03-28-2020 SARS-CoV-2 (COVID-19) RNA KATHLEEN+probe Ql (Resp) Not detected Invalid Interpretation Code Not Detected [facility] [place] [facility] Comment on above: Result Comment: This nucleic acid amplification test was developed and its performance characteristics determined by [facility]. Nucleic acid amplification tests include PCR and TMA. This test has not been FDA cleared or approved. This test has been authorized by FDA under an Emergency Use Authorization (EUA). This test is only authorized for the duration of time the declaration that circumstances exist justifying the authorization of the emergency use of in vitro diagnostic tests for detection of SARS-CoV-2 virus and/or diagnosis of COVID-19 infection under section 564(b)(1) of the Act, 21 U.S.C. 360bbb-3(b) (1), unless the authorization is terminated or revoked sooner. When diagnostic testing is negative, the possibility of a false negative result should be considered in the context of a patient's recent exposures and the presence of clinical signs and symptoms consistent with COVID-19. An individual without symptoms of COVID-19 and who is not shedding SARS-CoV-2 virus would expect to have a negative (not detected) result in this assay. Performed at: [facility] [address] [facility] [place] [id number] MD Lyndon Rossi Performed By: #### S ARS-CoV-2, KATHLEEN, [id number] ####[facility] [place] [facility] [address] [place] [id number] Pre-Certification Formon Pre-Certification Form [id number] .00CD:127 [facility] Pre-Authorization for Medica l Treatmenton 03-18-2020 Pre-Authorization for Medical Treatment [id number] .00CD:127 [facility] Consenton 03-09-2020 Consent [id number] .00CD:127 [facility] Physician Orderon 03-09-2020 Physician Order [id number]. 00CD:127 [facility] Provider Letter FTMCon 03-09 Provider Letter [facility] [address] [place] [address] Re: SEDRICK HENDRICKS Date of : 1970 Thank you for your referral of Sedrick Hendricks who was seen on consultation on 03/04/2020 for frequent loose stools. I have enclosed my consultation notes for your review. He is scheduled to undergo a colonoscopy on 04/03/2020. Sincerely, Rao Cope MD General Surgery [facility] Ambulatory Clinical Summaryo n 03-05-2020 Ambulatory Clinical Summary {[id number]}CD:[id number] [facility] Facesheeton 03-05-2020 Facesheet [id number] .00CD:127 [facility] Patient Educationon 03-04-20 Patient Education Colonoscopy A colonoscopy is an exam to look at your colon. This exam helps to find lumps (tumors ), growths (polyps ), puffiness (swelling ), and bleeding in your colon. BEFORE THE PROCEDURE ? You may need to drink clear liquids for 2 days before the exam. ? Ask your doctor about changing or stopping your regular medicines. ? You may need liquid or medicines put in your butt (enema or laxatives ) to help you poop. ? You may need to drink a liquid over a short amount of time. This liquid cleans your colon. ? Ask your doctor what time you need to arrive. PROCEDURE A tube is put in the opening of your butt (anus ) and into your colon. The doctor will look for anything that is not normal. Your doctor may take a tissue sample (biopsy ) from your colon to be looked at more closely. AFTER THE PROCEDURE ? Have someone drive you home if you took pain medicine or a medicine to relax you (sedative ). ? You may see blood in your poop (stool ). This is normal. ? You may pass gas and have belly (abdominal ) cramps. This is normal. Finding out the results of your test Ask when your test results will be ready. Make sure you get your test results. Document Released: 06/24/2011 Document Revised: 08/13/2012 Document Reviewed: 06/24/2011 ExitCare? Patient Information ?2013 [employer]. Normal [facility] [place] [facility] Encounters Encounter Date Encounter Type Care Provider Facility Start: 06-05-2022 End: 06-16-[address] AL ARGUETA Facility:[facility] Start: 06-03-2022 End: 06-04-[address] AL ARGUETA Facility:[facility] Start: 05-10-2022 End: 06-04-[address] AL ARGUETA Facility:[facility] Start: 04-21-2022 End: 04-22-[address] AL ARGUETA Facility:[facility] Start: 03-23-2022 End: 03-24-[address] AL ARGUETA Facility:[facility] Start: 12-03-[address] AL ARGUETA Facility :[facility] Start: 10-20-2021 Encounter for genera l adult medical examination without abnormal findings DR AL ARGUETA [facility] Start: 10-16-2021 End: 10-17-[address] AL ARGUETA Facility:[facility] Start: 10-16-2021 End: 10-17-2021 Encounter for general adult medical examination without abnormal findings DR AL ARGUETA Facility:[facility] Procedures Date Procedure Procedure Detail Performing Clinician Start: 10-16-[address] DEBBIE ARGUETA Comment on above: Performed By: #### P [facility] ####[facility] [id number] [place], [place] [address]Mi. [employer] Payers Date Payer Category Payer Unknown [id number] 2.16.84 [id number] 1970 Unknown [id number] 2.16.84 [id number] 1970 Unknown [id number] 2.16.84 [id number] 1970 Unknown [id number] 2.16.84 [id number] 1970 Unknown [id number] 2.16.84 [id number] 1970 Unknown [id number] 2.16.84 [id number] 1970 Unknown [id number] 2.16.84 [id number] 1960 Private Health Insurance [id number] Clinical Note 02-16-2021 Note Date & Type Note Facility 02-16-2021 Note Chief Complaint consultation for skin lesions on forehead and right upper back HPI Staff 50 year old male presents on self referral consultation for flesh colored raised area on forehead and bleeding raised nodule to right upper back. He is unsure how long back nodule has been present, he was unaware of this area until noted blood on towel after showering. History of Present Illness 50 yo male referred for bleeding lesion right upper back; unsure of how long it's been there; noticed bleeding over last month; no pain, no injury to area; no personal or fmhx of skin cancer; on diclofenac prn, no asa; also small lesion on forehead; bleeding or change in size. Review of Systems PHQ Score Initial Depression Screen Score: 0 ROS - Provider Constitutional: no fever, no sweats, no weight loss. Eyes: no glasses, no blurred vision, no visual loss. ENMT: no dentures, no hoarseness, no swallowing difficulties, no hearing loss, no ear infection(s), no nose bleeds. Cardiovascular: normal blood pressure, no chest pain, regular heartbeat, no heart murmur. Respiratory: no shortness of breath, no cough, no asthma, no wheezing. Gastrointestinal: no nausea, no vomiting, no diarrhea, no constipation, no blood in stool, no change in bowel habits, no abdominal pain, no hepatitis. Genitourinary: no kidney stones, no urine infection, no dysuria. Musculoskeletal: no pain, no weakness. Skin: no changing moles, no rash, yes skin lumps. Neurologic: no seizures, no epilepsy, no headache. Psychiatric: no emotional or psychiatric problem. Heme/Lymph: no bleeding problems, no anemia, no blood clots, no transfusions. Allergy/Immunologic: no swollen lymph nodes/glands, no IV drug abuse. Other: Additional ROS info: Except as noted in the above Review of Systems and in the History of Present Illness, all other systems have been reviewed and are negative or noncontributory. Physical Exam Vitals & Measurements T: 37.0 ?C (Temporal Artery) HR: 76(Peripheral) RR: 16 BP: 160/102 HT: 180.3 cm HT: 180.3 cm WT: 127 kg WT: 127.0 kg BMI: 39.07 HEENT: normal conjunctiva, sclera clear, no scleral icterus, EOM intact, PERRLA, oral mucosa moist without lesions. Neck: trachea midline, no mass, symmetric, no thyromegaly or nodules, no adenopathy Respiratory: lungs CTA, respirations non labored. Cardiovascular: regular rate and rhythm, no murmur, no pedal edema or varicosities. Gastrointestinal: soft, non distended, no tenderness, no masses, no palpable hernias, diastasis recti no, no hepatosplenomegaly; normal bs Lymphatic: no cervical adenopathy, no axillary adenopathy, no inguinal adenopathy. Musculoskeletal: normal gait, digits and nails without infection, nodes, cyanosis, clubbing. Skin: no rashes,7 mm raised, bleeding, red/purple lesion right upper back; right forehead with 3 mm raised, uniform, nonpigmented lesion; no ulcers, no subcutaneous nodules, induration. Psychiatric/Neuro: oriented to time, place, person, judgement normal, affect appropriate for age, insight intact, no focal deficits. Tests: review of old records completed, Discussed surgical options, risks, and possible complications with patient. Procedure patient brought to procedure room, placed in prone position; area prepped and draped; anesthetized with 1% Lidocaine with epinephrine; 3 ml; area excised in an elliptical fashion down to subcutaneous fat; total length of incision 1 cm; incision closed with interrupted 4-0 nylon sutures, tolerated well, ebl , 2 ml. Assessment/Plan 1. Neoplasm of uncertain behavior of skin of back (D48.5: Neoplasm of uncertain behavior of skin) excised under local anesthesia for definitive diagnosis and treatment; possible hemangioma or granuloma; tolerated well; follow up in 10 days for suture removal; call with problems/questions; forehead lesion not concerning, observe for now. Follow-up No qualifying data available Problem List/Past Medical History Ongoing Anxiety BMI 39.0-39.9,adult Frequent loose stools IBS (irritable bowel syndrome) Insomnia Lump on face Neoplasm of uncertain behavior of skin of back Skin mole Sleep apnea Testicular hypofunction Historical Hx of colonic polyps Procedure/Surgical History Colonoscopy and biopsy of colon (04/03/2020), Bone of toe, Left inguinal hernia. Medications Acidophilus Probiotic Blend, 1 cap(s), Oral, Daily Diclofenac 75mg Tab-DR, 75 mg, Oral, BID Multi Vitamins oral tablet, 1 tab(s), Oral, Daily sildenafil 100 mg Tab, 100 mg= 1 tab(s), Oral, Daily, PRN testosterone cypionate 200 mg/mL IM Laura, 100 mg= 0.5 mL, IntraMuscular, qWeek Allergies No Known Allergies Social History Alcohol - Denies Alcohol Use, 03/04/2020 Substance Abuse - Denies Substance Abuse, 03/04/2020 Tobacco - Denies Tobacco Use, 03/04/2020 Never (less than 100 in lifetime) Tobacco Use:., 02/16/2021 Family History Cardiac arrhythmia: Mother. Immunizations Vaccine Date Status Comments influenz (more content not included)... [facility] [place] [facility] Comment on above: Result Comment: Elec tronically Signed By: Rao COPE MD\Fabianbr\Date and Time Signed: 02/16/21 15:56 EDT History and physical note 04-07-2020 Note Date & Type Note Facility 04-07-2020 Note Patient: SABA HENDRICKS Age: 49 years Sex: Male : 1970 Associated Diagnoses: None Author: Rao COPE MD Subjective no changes to H & P [facility] [place] [facility] Comment on above: Result Comment: Elec tronically Signed By: Rao COPE MD\Fabianbr\Date and Time Signed: 04/07/20 12:37 EST History and physical note 04-03-2020 Note Date & Type Note Facility 04-03-2020 Note [id number]#1.00CD:127 [facility] [place] [facility] Clinical Note 03-04-2020 Note Date & Type Note Facility 03-04-2020 Note Chief Complaint referral for diarrhea HPI Staff 49 year old male presents on consultation from Dr. Argueta for colonoscopy due to loose stools. Having 3-6 bowel movements per day. Intermittent for greater than 15 years. Denies blood in stool, intermittent mucus. Denies nausea or vomiting. Dairy creates cramps and extremely loose stools. Negative stool studies completed 02/09/20. Celiac testing negative. History of Present Illness 49 yo male with sleep apnea, anxiety, IBS with loose stools for many years, worse over the last year, reports 6 loose bms per day, with mucous, no blood; some abdominal cramping at times, worse with dairy; no N/V; no wt loss; recent negative stool studies and negative work up for Celiac disease; did try a gluten free diet for several weeks with no improvement; only abdominal operation remote left inguinal hernia repair as a child; no previous endoscopy; on diclofenac daily, no asa, no SBE prophylaxis; no fmhx of GI malignancy or IBD. Review of Systems PHQ Score Initial Depression Screen Score: 0 ROS - Provider Constitutional: no fever, no sweats, no weight loss. Eyes: no glasses, no blurred vision, no visual loss. ENMT: no dentures, no hoarseness, no swallowing difficulties, no hearing loss, no ear infection(s), no nose bleeds. Cardiovascular: normal blood pressure, no chest pain, regular heartbeat, no heart murmur. Respiratory: no shortness of breath, no cough, no asthma, no wheezing. Gastrointestinal: no nausea, no vomiting, yes diarrhea, no constipation, no blood in stool, no change in bowel habits, no abdominal pain, no hepatitis. Genitourinary: no kidney stones, no urine infection, no dysuria. Musculoskeletal: no pain, no weakness. Skin: no changing moles, no rash, no skin lumps. Neurologic: no seizures, no epilepsy, no headache. Psychiatric: no emotional or psychiatric problem. Heme/Lymph: no bleeding problems, no anemia, no blood clots, no transfusions. Allergy/Immunologic: no swollen lymph nodes/glands, no IV drug abuse. Other: Additional ROS info: Except as noted in the above Review of Systems and in the History of Present Illness, all other systems have been reviewed and are negative or noncontributory. Physical Exam Vitals & Measurements T: 36.4 ?C (Tympanic) HR: 78(Peripheral) RR: 16 BP: 142/90 HT: 180.3 cm HT: 180.34 cm WT: 122.8 kg WT: 122.82 kg BMI: 37.76 HEENT: normal conjunctiva, sclera clear, no scleral icterus, EOM intact, PERRLA, oral mucosa moist without lesions. Neck: trachea midline, no mass, symmetric, no thyromegaly or nodules, no adenopathy Respiratory: lungs CTA, respirations non labored. Cardiovascular: regular rate and rhythm, no murmur, no pedal edema or varicosities. Gastrointestinal: obese, soft, non distended, no tenderness, no masses, no palpable hernias, diastasis recti no, no hepatosplenomegaly; normal bs Lymphatic: no cervical adenopathy, no axillary adenopathy, Musculoskeletal: normal gait, digits and nails without infection, nodes, cyanosis, clubbing. Skin: no rashes, no lesions, no ulcers, no subcutaneous nodules, induration. Psychiatric/Neuro: oriented to time, place, person, judgement normal, affect appropriate for age, insight intact, no focal deficits. Tests: labs reviewed, , review of old records completed, Discussed surgical options, risks, and possible complications with patient. Assessment/Plan 1. Frequent loose stools (R19.7: Diarrhea, unspecified) plan colonoscopy under anesthesia for further evaluation, informed consent obtained. patient understands the risks associated with COVID-19, and the need for preoperative testing with self-isolation until the procedure. 2. IBS (irritable bowel syndrome) (K58.9: Irritable bowel syndrome without diarrhea) see # 1 Follow-up No qualifying data available Patient Education Colonoscopy, [id number] Problem List/Past Medical History Ongoing Anxiety Frequent loose stools IBS (irritable bowel syndrome) Insomnia Sleep apnea Testicular hypofunction Historical No qualifying data Procedure/Surgical History Bone of toe, Left inguinal hernia. Medications Diclofenac 75mg Tab-DR, 75 mg, Oral, BID sildenafil 100 mg Tab, 100 mg= 1 tab(s), Oral, Daily, PRN testosterone cypionate 200 mg/mL IM Laura, 100 mg= 0.5 mL, IntraMuscular, qWeek Allergies No Known Allergies Social History Alcohol - Denies Alcohol Use, 03/04/2020 Substance Abuse - Denies Substance Abuse, 03/04/2020 Tobacco - Denies Tobacco Use, 03/04/2020 Never (less than 100 in lifetime) Tobacco Use:., 03/04/2020 Family History Cardiac arrhythmia: Mother. [facility] Comment on above: Result Comment: Elec tronically Signed By: MARIO SILVA, Rao Paez\Date and Time Signed: 03/04/20 17:16 EDT Summary Purpose Family History No Family History Records FoundNo Family History Records Found Advance Directives No Advanced Directives Records FoundNo Advanced Directives Records Found Additional Source Comments (unrecognized sect ion and content) No Status Records FoundNo Status Records Found INFORMATION SOURCE (unrecogn ized section and content) DATE CREATED AUTHOR 02/27/2021 [facility] DATE CREATED AUTHOR AUTHOR'S ORGANIZ ATION 07/09/2022 [facility] FOR RECORDS PERTAINING TO PATIENTS WHO ARE OR HAVE BEEN ENROLLED IN A CHEMICAL DEPENDENCY/SUBSTANCEABUSE PROGRAM, SOME INFORMATION MAY BE OMITTED. This clinical summary was aggregated from multiple sources. Caution should be exercised in using it in the provision of clinical care. This summary normalizes information from multiple sources, and as a consequence, information in this document may materially change the coding, format and clinical context of patient data. In addition, data may be omitted in some cases. CLINICAL DECISIONS SHOULD BE BASED ON THE PRIMARY CLINICAL RECORDS. [facility] [employer] [facility]. provides no warranty or guarantee of the accuracy or completeness of information in this document.
[2024-02-18 09:07] LABS: Testosterone 429 ng/dL (264-916)
== END 2024-02-17 11:04 | disposition home or self-care (01) ==
PROVIDERS: PCP Family Medicine; Visit Provider Family Medicine
DX: Z00.00 Encounter for general adult medical examination without abnormal findings (principal)
CPT/HCPCS: 36415; 84403

== ENCOUNTER 2024-09-21 09:52 | Outpatient (OUT) | payer OTHER, SELFPAY ==
--- OUTSIDE RECORDS SUMMARY | 2024-09-21 09:57 | XMS_ITS | CCD ---
Author Organization [facility] Care Team Providers Care Capacity Manager Name Role Phone ELLIE, DR MELENDEZ Admitting [...] te Episodic/Chronic Other aftercare (1 source) Other termite inspector (current) drug therapy; Translations: [OTH SENIOR CARE CURRENT DRUG THERAPY] Onset: 10-20-2021 Episodic Other [...] by: OMAR OLIVER Date: 2022-06-03 16:15 Normal [facility] XR FOREIGN BODY EYEon 12-30- 2022 XR FOREIGN BODY EYE EXAMINATION: XR FOREIGN BODY EYE HISTORY: Foreign body in eye COMPARISON: No relevant comparison available. FINDINGS: ORBITS: Negative for a metallic foreign body. OTHER: Negative. IMPRESSION: No metallic foreign body in the orbits Electronically authenticated by: OMAR OLIVER Date: 2022-06-03 09:47 Normal [facility] XR CSPINE MIN 4 VIEWSon 04-05 XR [...] OMAR OLIVER Date: 2022-04-21 15:51 Normal [facility] OCC BLD IMMUNO SCREENon 10-03 OCCULT BLOOD Negative Normal NEGATIVE [facility] Comment on above: Performed By: #### O BSCRN ####[facility] [address] [address]Dr. Tae Loving TESTOSTERONE, TOTALon 2021 Testosterone [Mass/Vol] 1025 ng/dL Critically high 264-916 [facility] Comment on above: Result Comment: Adul t male reference interval is based on a population of healthy nonobese males (BMI <30) between 19 and 39 years old. Zhou, et.al. JCEM 2017,102;6971-6144. PMID: [id number]. Performed By: #### T ESTTOT #### [facility] Laboratory [address] [address] [address] Tae Loving CBC AUTO DIFFon 10-16-2021 BASO # 0.1 103/ul Normal 0.0-0.1 [facility] Comment on above: Performed By: #### C BC #### [facility] [address] [address] [address] Tae Loving Basophils/100 WBC (Bld) 0.6 % Normal 0.2-2.0 [facility] Comment on above: Performed By: #### C BC #### [facility] [address] [place] [address] Dr. Tae Loving EO # 0.1 103/ul Normal 0.0-0.7 [facility] Comment on above: Performed By: #### C BC #### [facility] [address] [place] [address] Dr. Tae Loving Eosinophils/100 WBC (Bld) 1.7 % Normal 0.9-7.0 [facility] Comment on above: Performed By: #### C BC #### [facility] [address] [place] [address] Dr. Tae Loving Erythrocyte distribution width (RBC) [Ratio] 13.2 % Normal 11.0-15.0 [facility] Comment on above: Performed By: #### C BC #### [facility] [address] [place] [address] Dr. Tae Loving Hematocrit (Bld) [Volume fraction] 52.4 % Normal 42.0-54.0 [facility] Comment on above: Performed By: #### C BC #### [facility] [address] [place] [address] Dr. Tae Loving Hemoglobin (Bld) [Mass/Vol] 17.6 g/dL Normal 14.0-18.0 [facility] Comment on above: Performed By: #### C BC #### [facility] [address] [place] [address] Dr. Tae Loving IG # 0.05 10e3/ul Critically high 0.00-0.03 [facility] Comment on above: Performed By: #### C BC #### [facility] [address] [place] [address] Dr. Tae Loving IG % 0.6 % Critically high 0.0-0.5 [facility] Comment on above: Performed By: #### C BC #### [facility] [address] [place] [address] Dr. Tae Loving LYMPH # 1.4 103/ul Normal 1.2-3.8 [facility] Comment on above: Performed By: #### C BC #### [facility] [address] [place] [address] Dr. Tae Loving Lymphocytes/100 WBC (Bld) 17.5 % Critically low 20.5-60.0 [facility] Comment on above: Performed By: #### C BC #### [facility] [address] [place] [address] Dr. Tae Loving MANUAL DIFF REQ NO Normal [facility] Comment on above: Performed By: #### C BC #### [facility] [address] [place] [address] Dr. Tae Loving MCH (RBC) [Entitic mass] 30.7 pg Normal 25.9-34.0 [facility] Comment on above: Performed By: #### C BC #### [facility] [address] [place] [address] Dr. Tae Loving MCHC (RBC) [Mass/Vol] 33.6 g/dL Normal 29.9-35.2 [facility] Comment on above: Performed By: #### C BC #### [facility] [address] [place] [address] Dr. Tae Loving MCV (RBC) [Entitic vol] 91.4 fL Normal 80.0-94.0 [facility] Comment on above: Performed By: #### C BC #### [facility] [address] [place] [address] Dr. Tae Loving MONO # 0.7 103/ul Normal 0.3-0.8 [facility] Comment on above: Performed By: #### C BC #### [facility] [address] [place] [address] Dr. Tae Loving Monocytes/100 WBC (Bld) 8.4 % Normal 1.7-12.0 [facility] Comment on above: Performed By: #### C BC #### [facility] [address] [place] [address] Dr. Tae Loving NEUT # 5.5 103/ul Normal 1.4-6.5 [facility] Comment on above: Performed By: #### C BC #### [facility] [address] [address] [address] Tae Loving Neutrophils/100 WBC (Bld) 71.2 % Normal 43.0-75.0 [facility] Comment on above: Performed By: #### C BC #### [facility] [address] [address] [address] Tae Loving Platelet mean volume (Bld) [Entitic vol] 9.2 fL Critically low 9.5-13.5 [facility] Comment on above: Performed By: #### C BC #### [facility] [address] [address] [address] Tae Loving PLT 273 103/ul Normal 150-450 [facility] Comment on above: Performed By: #### C BC #### [facility] [address] [place] [address] Dr. Tae Loving RBC 5.73 106/ul Normal 4.70-6.10 [facility] Comment on above: Performed By: #### C BC #### [facility] [address] [address] [address] Tae Loving WBC 7.7 103/ul Normal 4.0-11.0 [facility] Comment on above: Performed By: #### C BC #### [facility] [address] [address] [address] Tae Loving FREE T3on 10-16-2021 FREE T3 2.90 pg/mlL Normal 2.18-3.98 [facility] Comment on above: Performed By: #### C MP, T4, LIPID, TSH, FT3 #### [facility] [address] [address] [address] Tae Loving GLYCOHEMOGLOBIN A1Con 2021 ADA RECOMMENDATION SEE BELOW Normal [facility] Comment on above: Result Comment: ADA RECOMMENDED LIMIT 4.0 - 6.0 ADA THERAPEUTIC TARGET < 7.0 ACTION SUGGESTED > 7.0 Performed By: #### A 1C ####[facility] [address] [address]Dr. Tae Loving Glucose [Mass/Vol] 108 mg/dL Normal [facility] Comment on above: Performed By: #### A 1C ####[facility] [address] [place], [place] [address]Fz[address] T[address] Loving HbA1c (Bld) [Mass fraction] 5.4 % Normal 4.5-6.2 [facility] Comment on above: Performed By: #### A 1C ####[facility] [address] [address]Dr. Tae Loving LIPID PROFILEon 10-16-2021 CHOL-HDL RATIO NORM SEE BELOW Normal [facility] Comment on above: Result Comment: 3.3 - 4.4 LOW RISK 4.4 - 7.1 AVERAGE RISK 7.1 - 11.0 MODERATE RISK >11.0 HIGH RISK Performed By: #### C MP, T4, LIPID, TSH, FT3 #### [facility] [address] [address] [address] Tae Loving Cholesterol [Mass/Vol] 177 mg/dL Normal <=200 [facility] Comment on above: Performed By: #### C MP, T4, LIPID, TSH, FT3 #### [facility] [address] [address] [address] Tae Loving Cholesterol in HDL [Mass/Vol] 54 mg/dL Normal 40-60 [facility] Comment on above: Performed By: #### C MP, T4, LIPID, TSH, FT3 #### [facility] [address] [address] [address] Tae Loving Cholesterol in LDL [Mass/Vol] 109.8 mg/dL Normal [facility] Comment on above: Performed By: #### C MP, T4, LIPID, TSH, FT3 #### [facility] [address] [address] [address] Tae Loving Cholesterol.total/Ch olesterol in HDL [Mass ratio] 3.3 {ratio} Normal [facility] Comment on above: Performed By: #### C MP, T4, LIPID, TSH, FT3 #### [facility] [address] [address] [address] Tae Loving HDL NORMAL > or = 60 mg/dl - LO W CARDIOVASCULAR RISK <40 mg/dl - HIGH CARDIOVASCULAR RISK Normal [facility] Comment on above: Performed By: #### C MP, T4, LIPID, TSH, FT3 #### [facility] [address] [address] [address] Tae Loving LDL CALC NORMAL SEE BELOW Normal [facility] Comment on above: Result Comment: <100 mg/dl OPTIMAL 100 - 129 mg/dl NEAR OR ABOVE OPTIMAL 130 - 159 mg/dl BORDERLINE HIGH 160 - 189 mg/dl HIGH >190 mg/dl VERY HIGH Performed By: #### C MP, T4, LIPID, TSH, FT3 #### [facility] [address] [address] [address] Tae Loving Triglyceride [Mass/Vol] 66 mg/dL Normal <=150 [facility] Comment on above: Performed By: #### C MP, T4, LIPID, TSH, FT3 #### [facility] [address] [place] [address] Dr. Tae Loving VLDL CALC 13.2 mg/dL Normal [facility] Comment on above: Performed By: #### C MP, T4, LIPID, TSH, FT3 #### [facility] [address] [place] [address] Dr. Tae Loving PROF 14(COMP METB)on 022 Albumin [Mass/Vol] 3.7 g/dL Normal 3.4-5.0 [facility] Comment on above: Performed By: #### C MP, T4, LIPID, TSH, FT3 #### [facility] [address] [place] [address] Dr. Tae Loving Albumin/Globulin [Mass ratio] 1.1 {ratio} Normal [facility] Comment on above: Performed By: #### C MP, T4, LIPID, TSH, FT3 #### [facility] [address] [place] [address] Dr. Tae Loving ALP [Catalytic activity/Vol] 78 U/L Normal 46-116 [facility] Comment on above: Performed By: #### C MP, T4, LIPID, TSH, FT3 #### [facility] [address] [place] [address] Dr. Tae Loving ALT [Catalytic activity/Vol] 35 U/L Normal 16-63 [facility] Comment on above: Performed By: #### C MP, T4, LIPID, TSH, FT3 #### [facility] [address] [address] [address] Tae Loving Anion gap [Moles/Vol] 9.0 mmol/L Normal [facility] Comment on above: Performed By: #### C MP, T4, LIPID, TSH, FT3 #### [facility] [address] [place] [address] Dr. Tae Loving AST [Catalytic activity/Vol] 32 U/L Normal 15-37 [facility] Comment on above: Performed By: #### C MP, T4, LIPID, TSH, FT3 #### [facility] [address] [place] [address] Dr. Tae Loving Bilirubin [Mass/Vol] 0.8 mg/dL Normal 0.2-1.0 [facility] Comment on above: Performed By: #### C MP, T4, LIPID, TSH, FT3 #### [facility] [address] [place] [address] Dr. Tae Loving Calcium [Mass/Vol] 8.6 mg/dL Normal 8.5-10.1 [facility] Comment on above: Performed By: #### C MP, T4, LIPID, TSH, FT3 #### [facility] [address] [place] [address] Dr. Tae Loving Chloride [Moles/Vol] 101 mmol/L Normal 98-107 [facility] Comment on above: Performed By: #### C MP, T4, LIPID, TSH, FT3 #### [facility] [address] [place] [address] Dr. Tae Loving CO2 [Moles/Vol] 31.1 mmol/L Normal 21.0-32.0 [facility] Comment on above: Performed By: #### C MP, T4, LIPID, TSH, FT3 #### [facility] [address] [place] [address] Dr. Tae Loving Creatinine [Mass/Vol] 1.08 mg/dL Normal 0.70-1.30 [facility] Comment on above: Performed By: #### C MP, T4, LIPID, TSH, FT3 #### [facility] [address] [place] [address] Dr. Tae Loving EGFR-AF VINCENTIAN >60 Normal >=60 [facility] Comment on above: Performed By: #### C MP, T4, LIPID, TSH, FT3 #### [facility] [address] [place] [address] Dr. Tae Loving EGFR-NON AF VINCENTIAN >60 Normal >=60 [facility] Comment on above: Performed By: #### C MP, T4, LIPID, TSH, FT3 #### [facility] [address] [place] [address] Dr. Tae Loving Globulin (S) [Mass/Vol] 3.4 g/dL Normal [facility] Comment on above: Performed By: #### C MP, T4, LIPID, TSH, FT3 #### [facility] [address] [place] [address] Dr. Tae Loving Glucose [Mass/Vol] 88 mg/dL Normal 74-106 [facility] Comment on above: Performed By: #### C MP, T4, LIPID, TSH, FT3 #### [facility] [address] [place] [address] Dr. Tae Loving Potassium [Moles/Vol] 4.1 mmol/L Normal 3.5-5.1 [facility] Comment on above: Performed By: #### C MP, T4, LIPID, TSH, FT3 #### [facility] [address] [place] [address] Dr. Tae Loving Protein [Mass/Vol] 7.1 g/dL Normal 6.4-8.2 [facility] Comment on above: Performed By: #### C MP, T4, LIPID, TSH, FT3 #### [facility] [address] [place] [address] Dr. Tae Loving Sodium [Moles/Vol] 137 mmol/L Normal 136-145 [facility] Comment on above: Performed By: #### C MP, T4, LIPID, TSH, FT3 #### [facility] [address] [place] [address] Dr. Tae Loving Urea nitrogen [Mass/Vol] 15.0 mg/dL Normal 7.0-18.0 [facility] Comment on above: Performed By: #### C MP, T4, LIPID, TSH, FT3 #### [facility] [address] [place] [address] Dr. Tae Loving Urea nitrogen/Creatinine [Mass ratio] 13.9 mg/mg Normal [facility] Comment on above: Performed By: #### C MP, T4, LIPID, TSH, FT3 #### [facility] [address] [place] [address] Dr. Tae Loving T4on 10-16-2021 T4 [Mass/Vol] 7.00 ug/dL Normal 4.50-12.10 [facility] Comment on above: Performed By: #### C MP, T4, LIPID, TSH, FT3 #### [facility] [address] [place] [address] Dr. Tae Loving TSHon 10-16-2021 TSH 2.444 uIU/mL Normal 0.358-3.740 [facility] Comment on above: Performed By: #### C MP, T4, LIPID, TSH, FT3 #### [facility] [address] [place] [address] Dr. Tae Loving TSH RANGE SEE BELOW Normal [facility] Comment on above: Result Comment: <0.3 4 UIU/ml HYPERTHYROID 0.34-5.60 UIU/ml EUTHYROID >5.60 UIU/ml HYPOTHYROID Performed By: #### C MP, T4, LIPID, TSH, FT3 #### [facility] [address] [place] [address] Dr. Tae Loving General Surgery Office/Clini c [...] inactivated - Not Given Patient Refuses Normal [facility] Comment on above: Result Comment: Elec tronically Signed By: MARIO SILVA, Rao Paez\Date and Time Signed: 02/27/21 08:59 EDT Pathology Noteon 02-19-2021 Pathology Note [id number]# 1.00CD:127 Normal [facility] Ambulatory Clinical Summaryo n 04-14-2020 Ambulatory Clinical Summary {[id number] -[id number]}CD:[id number] Normal [facility] General Surgery Office/Clini c Noteon 04-14-2020 [...] inactivated - Not Given Patient Refuses Normal [facility] Comment on above: Result Comment: Elec tronically Signed By: Rao COPE MD\Date and Time Signed: 04/14/20 16:42 EST IntraOperative Documentson 1 06-14-2019 IntraOperative Documents [id number]# 1.00CD:127 Normal [facility] Patient Educationon 04-14-20 Patient Education Diet [...] need to work with your caregiver and Customer Engagement Representative to find the best combination of medicine, diet, counseling, and support to control your symptoms. The following are some diet suggestions. FOODS THAT MAKE IBS WORSE ? Fatty foods, such as [place] fries. ? Milk products, such as cheese [...] Document Reviewed: 04/28/2008 ExitCare? Patient Information ?2013 [facility] [place] Postoperative Documentson Postoperative Documents [id number]#1 .00CD:127 Normal [facility] Coding Summary.on 04-10-2020 Coding Summary. CODING DATE: 04/10/2020 FINAL [facility] STATUS: Home (Routine DC) PAYOR: Commercial Insurance APC DESCRIPTION 5312 Level 2 Lower GI Procedures ADMIT DX: REASON FOR VISIT DX: R19.7 Diarrhea, unspecified FINAL DX: PRINCIPAL: R19.7 Diarrhea, unspecified SECONDARY: K58.9 Irritable bowel syndrome without diarrhea PYMT PROC APC STAT DESCRIPTION DOCTOR NAME DATE 39513 5312 T Colonoscopy, flexible; Rao COPE MD 04/03/2020 with biopsy, single or multiple 41593 Anesthesia for lower Liben JR DO, Shashi [...] Wylie Revised Date Saved: 04/10/2020 11:21 am [facility] Main OR Intraoperative Recor don 04-07-2020 Main OR Intraoperative Record IntraOp Document Type FT Summary Primary Physician: Rao COPE MD Finalized Date/Time: 04/07/20 10:56:53 Pt. Name: SEDRICK HENDRICKS/Sex: 1970 Male Med Rec #: [id number] Physician: Rao COPE MD Financial #: [id number] Pt. Type: O Room/Bed: / Admit/Disch: 04/03/20 [...] Role Performed Anesthesiologist of Surgeon - Primary Product Manager Financial Services - Primary Record Time In 04/03/20 08:30:00 [...] DO, N (more content not included)... Normal [facility] Colonoscopy Procedure Report on 04-03-2020 Colonoscopy [...] in good condition. Johnny Martino Dictated: 04/03/2020 #[id number] Typed: 04/03/2020 #[id number] cc: Johnny Larkin M.D. [facility] Consenton 04-03-2020 Consent [id number]# 1.00CD:127 [facility] Consent for Treatmenton 03-07 Consent for Treatment [id number]#1 .00CD:127 [facility] Discharge Instructionson Discharge Instructions [id number]# 1.00CD:127 Normal [facility] Inpatient Patient Summaryon 04-03-2020 Inpatient Patient Summary [address] [address] [facility] Clinical Discharge Instructions PERSON INFORMATION Name: SEDRICK HENDRICKS PHYSICIANS Admitting Physician: Rao COPE MD Attending Physician: Roa COPE MD PCP: Ellie SILVA, Al Discharge Diagnosis: Frequent loose stools Comment: PATIENT EDUCATION INFORMATION Instructions: Colonoscopy, Care After Surgery Salam (CUSTOM) Medication Leaflets: Follow up: With: Address: When: Rao MARIO [address] [place] [address], [address], [address] [address] Business (1) Within 7 to 10 days MEDICATION LIST Medications to Continue with No Changes Other Medications diclofenac (Diclofenac 75mg Tab-DR) 75 Milligram By Mouth 2 times a day. sildenafil (sildenafil 100 mg Tab) 1 Tablets By Mouth every day as needed erectile dysfunction. testosterone (testosterone cypionate 200 mg/mL IM Laura) 0.5 Milliliter Intramuscular every week. Comment: Normal [facility] IntraOperative Documentson IntraOperative Documents [id number]# 1.00CD:127 Normal [facility] IntraOperative Documents [id number]# 1.00CD:127 [facility] Main OR PACU I Recordon 03-07 Main OR PACU I Record PACU Phase I Document Type FT Summary Primary Physician: Rao COPE MD Finalized Date/Time: 04/03/20 09:24:17 Pt. Name: SEDRICK HENDRICKS Linda /Sex: 1970 Male Med Rec #: [id number] Physician: Rao COPE MD Financial #: [id number] Pt. Type: O Room/Bed: / Admit/Disch: 04/03/20 [...] Signed By: Shira Pinto RN 04/03/20 09:24 [facility] Main OR Preoperative Recordo n 04-03-2020 Main OR Preoperative Record Holding Area Document Type FT Summary Primary Physician: Rao COPE MD Finalized Date/Time: 04/03/20 07:44:27 Pt. Name: SABA HENDRICKSOBEY ChristyO.B./Sex: 1970 Male Med Rec #: [id number] Physician: Rao COPE MD Financial #: [id number] Pt. Type: O Room/Bed: / Admit/Disch: 04/03/20 [...] By: James Cleary RN 04/03/20 07:44 Normal [facility] Outpatient Surgery Discharge Instructionon 04-03-2020 Outpatient Surgery Discharge Instruction [address] [address] Patient Discharge Instructions PERSON INFORMATION [...] Follow up: With: Address: When: Rao COPE [address] [place] [address], [address], [address] [address] Business (1) Within 7 to 10 days Pharmacy Information: Thank you for choosing [facility] HERE ARE THE MEDICATION CHANGES THAT OCCURRED [...] or gets worse throughout the day. Normal [facility] Patient Education - Texton 1 Patient [...] or gets worse throughout the day. 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 Vital Signs (last 24 hrs) Last Charted SBP 114 mmHg (APR 03 08:45) DBP 94 mmHg (APR 03 08:45) SpO2 98 % (APR 03 08:45) Respiratory: Adequate air exchange with moravian of preoperative function.. Cardiovascular: Cardiovascular function is stable and has returned to preoperative levels.. Neurologic: Pt has returned to preoperative baseline.. Review / Management Condition: Stable. Assessment Anesthetic outcome No anesthetic complications noted. Plan Transfer/ Discharge: Patient can be discharged from PACU when criteria met. Condition good. Normal [facility] Comment on above: Result Comment: Elec [...] Problems Frequent loose stools / SNOMED CT 404487336 / Confirmed Sleep apnea / SNOMED CT 053372357 / Confirmed Testicular hypofunction / SNOMED CT 004930395 / Confirmed IBS (irritable bowel syndrome) / SNOMED CT 59649813 / Confirmed Insomnia / SNOMED CT 642714442 / Confirmed Anxiety / SNOMED CT 81191871 / Confirmed Physical Examination Intake and Output Denies significant n/v and is tolerating p.o. Vital Signs (last 24 hrs) Last Charted SBP H 154mmHg (APR 03 07:47) DBP H 93mmHg (APR 03 07:47) SpO2 96 % (APR 03 07:47) Respiratory: Adequate air exchange with moravian of preoperative function.. Cardiovascular: Cardiovascular function is stable and has returned to preoperative levels.. Neurologic: Pt has returned to preoperative baseline.. Review / Management Condition: Stable. Assessment Anesthetic outcome No anesthetic complications noted. Plan Transfer/ Discharge: Patient can be discharged from PACU when criteria met. Condition good. Normal [facility] Comment on above: Result Comment: Elec tronically Signed By: Shashi Hood JR, DO\Date and Time Signed: 04/03/20 08:51 EDT Coding Summary.on 03-31-2020 Coding Summary. CODING DATE: 03/31/2020 FINAL [facility] STATUS: Home (Routine DC) PAYOR: Commercial [...] CphT Date Saved: 03/31/2020 09:24 am Normal [facility] Priority Order-Kevan 2019 Priority Order-STAT Comment Invalid Interpretation Code [facility] Comment on above: Result Comment: Rece ived Performed at: [email or web address] [address] [facility] [place] [id number] MD Lyndon Rossi Performed By: #### S ARS-CoV-2, KATHLEEN, [id number] ####[facility] [address] [place] [address] SARS-CoV-2, NAAon 03-28-2020 SARS-CoV-2 (COVID-19) RNA KATHLEEN+probe Ql (Resp) Not detected Invalid Interpretation Code Not Detected [facility] Comment on above: Result Comment: This nucleic acid amplification test was developed and its performance characteristics determined by [employer]. Nucleic acid amplification tests include PCR and [...] detected) result in this assay. Performed at: [facility] [address] [facility] [place] [id number] MD Lyndon Rossi Performed By: #### S ARS-CoV-2, KATHLEEN, [id number] ####[facility] [address] [place] [id number] Pre-Certification Formon Pre-Certification Form [id number] .00CD:127 [facility] Pre-Authorization for Medica l Treatmenton 03-18-2020 Pre-Authorization for Medical Treatment [id number] .00CD:127 [facility] Consenton 03-09-2020 Consent [id number] .00CD:127 [facility] Physician Orderon 03-09-2020 Physician Order [id number]#1. 00CD:127 [facility] Provider Letter FTMCon 03-09 Provider Letter [facility] [address] [place] [address] Re: SEDRICK HENDRICKS Date of : 1970 Thank you for your referral of Sedrick Hendricks who was seen on consultation on 03/04/2020 for frequent loose stools. I have enclosed my consultation notes for your review. He is scheduled to undergo a colonoscopy on 04/03/2020. Sincerely, Rao Cope MD General Surgery [facility] Ambulatory Clinical Summaryo n 03-05-2020 Ambulatory Clinical Summary {[id number]}CD:[id number] [facility] Facesheeton 03-05-2020 Facesheet [id number] .00CD:127 [facility] Patient Educationon 03-04-20 Patient Education Colonoscopy [...] Document Reviewed: 06/24/2011 ExitCare? Patient Information ?2013 [employer]. Normal [facility] Encounters Encounter Date Encounter Type Care [...] examination without abnormal findings DR AL ARGUETA [facility] Start: 10-16-2021 End: 10-17-[address] AL ARGUETA Facility:[facility] Start: 10-16-2021 End: 10-17-2021 Encounter for general adult medical examination without abnormal findings DR AL ARGUETA Facility:[facility] Procedures Date Procedure Procedure Detail Performing Clinician Start: 10-16-[address] DEBBIE ARGUETA Comment on above: Performed By: #### P [facility] ####[facility] [address] [place], [place] [address] Payers Date Payer Category Payer Unknown [id number] 2.16.84 [id number] 1970 Unknown [id number] 2.16.84 [id number] 1970 Unknown [id number] 2.16.84 [id number] 1970 Unknown [id number] 2.16.84 [id number] 1970 Unknown [id number] 2.16.84 [id number] 1970 Unknown [id number] 2.16.84 [id number] 1970 Unknown [id number] 2.16.84 [id number] 1960 Private Health Insurance [id number] Clinical Note 02-16-2021 Note Date & Type [...] Status Comments influenz (more content not included)... [facility] Comment on above: Result Comment: Elec tronically Signed By: Rao COPE MD\Fabianbr\Date and Time Signed: 02/16/21 15:56 EDT History and physical note 04-07-2020 Note Date & Type Note Facility 04-07-2020 Note Patient: SABA HENDRICKS Age: 49 years Sex: Male : 1970 Associated Diagnoses: None Author: Rao COPE MD Subjective no changes to H & P [facility] Comment on above: Result Comment: Elec tronically Signed By: Rao COPE MD\Fabianbr\Date and Time Signed: 04/07/20 12:37 EST History and physical note 04-03-2020 Note Date & Type Note Facility 04-03-2020 Note [id number]#1.00CD:127 [facility] Clinical Note 03-04-2020 Note Date & [...] No qualifying data available Patient Education Colonoscopy, Crki-xv-Kytj Problem List/Past Medical History Ongoing Anxiety Frequent [...] Use:., 03/04/2020 Family History Cardiac arrhythmia: Mother. [facility] Comment on above: Result Comment: Elec [...] section and content) DATE CREATED AUTHOR 02/27/2021 [facility] DATE CREATED AUTHOR AUTHOR'S ORGANIZ ATION 07/09/2022 [facility] FOR RECORDS PERTAINING TO PATIENTS WHO ARE [...] BE BASED ON THE PRIMARY CLINICAL RECORDS. [facility] [employer] [facility]. provides no warranty or guarantee of the accuracy or completeness of information in this document.
[2024-09-21 10:13] LABS: Basophils Percent Auto 0.6 % (0.2-2.0); Eosinophils Absolute Auto 0.1 10^3/uL (0.0-0.7); Eosinophils Percent Auto 1.9 % (0.9-7.0); Hematocrit 52.1 % (42.0-54.0); Hemoglobin 18.1 g/dL (14.0-18.0); Immature Granulocytes Abs Auto 0.03 10^3/uL (0.00-0.03); Immature Granulocytes Pct Auto 0.5 % (0.0-0.5); Lymphocytes Absolute Auto 1.3 10^3/uL (1.2-3.8); Lymphocytes Percent Auto 20.1 % (20.5-60.0); Mean Corpuscular HGB Conc 34.7 g/dL (29.9-35.2); Mean Corpuscular Hemoglobin 31.8 pg (25.9-34.0); Mean Corpuscular Volume 91.6 fL (80.0-94.0); Mean Platelet Volume 9.5 fL (9.5-13.5); Monocytes Absolute Auto 0.6 10^3/uL (0.3-0.8); Neutrophils Absolute Auto 4.3 10^3/uL (1.4-6.5); Neutrophils Percent Auto 67.9 % (43.0-75.0); Platelet Count 287 10^3/uL (150-450); Red Blood Count 5.69 10^6/uL (4.70-6.10); Red Cell Distribution Width 13.2 % (11.0-15.0); White Blood Count 6.3 10^3/uL (4.0-11.0)
[2024-09-21 10:43] LABS: Estimated Average Glucose 103 mg/dL; Glycohemoglobin A1C 5.2 % (4.5-6.2)
[2024-09-21 10:53] LABS: Alanine Aminotransferase 32 U/L (16-63); Albumin Globulin Ratio 1.2; Albumin Level 3.7 g/dL (3.4-5.0); Alkaline Phosphatase 86 U/L (46-116); Anion Gap 11.9; Aspartate Amino Transferase 29 U/L (15-37); BUN Creatinine Ratio 11.8; Carbon Dioxide 28.3 mmol/L (21.0-32.0); Chloride 103 mmol/L (98-107); Chol HDL Ratio 2.4; Cholesterol 186 mg/dL (<=200); Estimated GFR (African America >60 (>=60 mL/min/1.73m^2); Estimated GFR (Non-African Ame >60 (>=60 mL/min/1.73m^2); Free T3 3.25 pg/mL (2.18-3.98); Globulin 3.1 g/dL; Glucose 102 mg/dL (74-106); HDL Cholesterol 76 mg/dL (40-60); Potassium 4.2 mmol/L (3.5-5.1); Sodium 139 mmol/L (136-145); Thyroid Stimulating Hormone 3.074 uIU/mL (0.358-3.740); Total Protein 6.8 g/dL (6.4-8.2); Triglycerides 55 mg/dL (<=150)
[2024-09-22 07:15] LABS: Testosterone 842 ng/dL (264-916)
== END 2024-09-21 09:53 | disposition home or self-care (01) ==
LOC: LAB 09:54
PROVIDERS: PCP Family Medicine; Visit Provider Family Medicine
DX: Z00.00 Encounter for general adult medical examination without abnormal findings (principal)
CPT/HCPCS: 36415; 80053; 80061; 83036; 84403; 84436; 84443; 84481; 85025; G0103